=== PATIENT | female | born 1940 | race Caucasian/White ===

== ENCOUNTER 2017-01-18 03:22 | Inpatient (IN) | payer MEDICARE, BC ==
[2017-01-18] VITALS (9 sets, daily range): BP systolic 106–173; BP diastolic 52–79
[~2017-01-18] VITALS: Ht 162.6 cm; Wt 88.9 kg
[~2017-01-18 03:22] MED LIST: CARV25TA PO; DEXL60CA PO; DICY20TA3 PO; FURO40SO5 PO; SILD20TA2 PO; WARF5VIA IV; [UNRECOGNIZED DRUG - OTHER]
[2017-01-18 06:38] LABS: HEMATOCRIT 35.8 % (36.0-47.0); HEMOGLOBIN 11.4 g/dL (12.0-15.5); RED BLOOD COUNT 3.98 x10^6/uL (3.50-5.40); RED CELL DISTRIBUTION WIDTH 14.7 % (11.5-14.5); WHITE BLOOD COUNT 5.1 x10^3/uL (4.0-11.0)
[2017-01-18 06:47] LABS: ALBUMIN 3.5 g/dL (3.4-5.0); CALCIUM 8.8 mg/dL (8.5-10.1); CREATININE 0.9 mg/dL (0.6-1.0); GFR 60.4; MAGNESIUM 1.9 mg/dL (1.8-2.4); POTASSIUM 4.4 mmol/L (3.5-5.1); TOTAL BILIRUBIN 0.5 mg/dL (0.2-1.0); TOTAL PROTEIN 7.1 g/dL (6.4-8.2)
[2017-01-18] MEDS ORDERED: LEVO50TA5 PO (06:56)
[2017-01-18] MEDS ORDERED: MULT1TAB52 PO (06:56)
[2017-01-18] MEDS ORDERED: SPIR25TA3 PO (06:56)
[2017-01-18] MEDS ORDERED: WARF5TAB7 PO (06:56)
[2017-01-18] MEDS ORDERED: AMLO10TA2 PO (07:33)
[2017-01-18] MEDS ORDERED: TRAM50TA PO (07:34)
[2017-01-18] MEDS ORDERED: CALC-178 PO (07:35)
[2017-01-18] MEDS ORDERED: SILD20TA PO (07:36)
[2017-01-18] MEDS ORDERED: FURO-68 PO (07:39)
[2017-01-18] MEDS: CALCIUM CARB/VIT D3 500/200 TABLET PO SCH (08:13)
[2017-01-18] MEDS: SPIRONOLACTONE 25 MG TABLET PO SCH (08:13)
[2017-01-18] MEDS: MULTIVITAMIN with MINERAL TABLET. PO SCH (08:13)
[2017-01-18] MEDS: CARVEDILOL 12.5 MG TABLET PO SCH ×2 (08:13→18:43)
[2017-01-18] MEDS: LEVOTHYROXINE 50 MCG TABLET PO SCH (08:14)
[2017-01-18] MEDS: AMLODIPINE BESYLATE 10 MG TABLET PO SCH (08:14)
[2017-01-18] MEDS ORDERED: ONDANSETRON PF 4 MG/2 ML VIAL. ONE (08:32)
[2017-01-18] MEDS ORDERED: ONDANSETRON PF 4 MG/2 ML VIAL. IV PRN (08:45)
[2017-01-18] MEDS: FUROSEMIDE 40 MG TABLET PO SCH (08:47)
--- NOTE | 2017-01-18 08:51 | PDOC2 ---
CONSULT Date of Admission DATE: 01/18/17 TIME: 08:51 Reason for Consult: dizziness, atrial fibrillation, hypertension History of Present Illness Ms Talavera is a 77 year old female with a history of chronic, rate controlled, atrial fibrillation and pulmonary hypertension for which she [place] with [facility] [place]. She reports that yesterday she was sitting and had sudden onset of dizziness that she describes as a spinning sensation. She reports that this was increased with turning of her head or movement. She reports associated nausea and a flushed sensation in her face. She also reports some numbness and tingling in her right arm. She denies any chest discomfort, palpitations or dyspnea beyond her baseline. She denies any congestive symptoms or syncope. She reports being unable to walk due to the dizziness so EMS was called and she was taken to [facility]. She was told she had vertigo but felt unable to go home. [place] had no beds so she was direct admitted to [facility]. She reports improvement in the dizziness if she lays still and keeps her eyes closed, after medication given to her at [facility]. 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 She believes her last echo, and stress test were at least 1 year ago. Past Surgical History hip surgery, hysterectomy Family History HTN, CAD Social History non smoker, no significant ETOH, no illicit drugs Current Medications Current Medications Amlodipine Besylate (Norvasc) 10 mg DAILY PO Last administered on 01/18/17 08: 14; Start 01/18/17 at 09:00 Carvedilol (Coreg) 12.5 mg BIDWMEALS PO Last administered on 01/18/17 08:13; Start 01/18/17 at 08:00 Levothyroxine Sodium (Synthroid) 50 mcg DAILYAC PO Last administered on 08:14; Start 01/18/17 at 07:30 Spironolactone (Aldactone) 25 mg DAILY PO Last administered on 01/18/17 08:13 ; Start 01/18/17 at 09:00 Warfarin Sodium (Coumadin) 10 mg DAILY16 PO ; Start 01/18/17 at 16:00 Calcium/Vitamin D (Oscal D 500mg/ 200uts) 1 tab DAILYWBKFT PO Last administered on 01/18/17 08:13; Start 01/18/17 at 08:00 Multivitamins/ Calcium (Thera-M Plus) 1 tab DAILY PO Last administered on 08:13; Start 01/18/17 at 09:00 Warfarin Sodium (Coumadin Per Physician) 1 each PRN DAILY PRN [facility] SEE COMMENTS; Start 01/18/17 at 08:00 Furosemide (Lasix) 40 mg DAILY PO Last administered on 01/18/17 08:47; Start 01/18/17 at 09:00 Sildenafil Citrate (Revatio) 20 mg TID PO ; Start 01/18/17 at 09:00 Ondansetron HCl (Zofran) 4 mg STK-MED ONCE .ROUTE ; Start 01/18/17 at 08:32; Stop 01/18/17 at 08:33; Status DC Ondansetron HCl (Zofran) 4 mg PRN Q6HRS PRN IV NAUSEA/VOMITING; Start 01/18/17 at 08:45 Active Scripts Active Reported Lasix (Furosemide) 40 Mg Tablet 1 Tab PO DAILY Calcium 1,000 + D3 Caplet (Calcium Carbonate/Vitamin D3) 1 Each Tablet 1 Each PO DAILY Tramadol Hcl (Tramadol HCl) 50 Mg Tablet 50 Mg PO PRN Q6HRS PRN Amlodipine Besylate 10 Mg Tablet 1 Tab PO DAILY Multivitamins (Multivitamin) 1 Each Tablet 1 Each PO DAILY Levothyroxine Sodium 50 Mcg Tablet 50 Mcg PO DAILYAC LAST DOSE GIVEN: DATE: TIME: NEXT DOSE DUE: DATE: TIME: Warfarin Sodium 5 Mg Tablet 10 Mg PO DAILY LAST DOSE GIVEN: DATE: TIME: NEXT DOSE DUE: DATE: TIME: Spironolactone 25 Mg Tablet 25 Mg PO DAILY LAST DOSE GIVEN: DATE: TIME: NEXT DOSE DUE: DATE: TIME: Sildenafil (Sildenafil Citrate) 20 Mg Tablet 20 Mg PO TID LAST DOSE GIVEN: DATE: TIME: NEXT DOSE DUE: DATE: TIME: Dicyclomine Hcl 20 Mg Tablet 20 Mg PO DAILY PRN LAST DOSE GIVEN: DATE: TIME: NEXT DOSE DUE: DATE: TIME: Dexilant (Dexlansoprazole) 60 Mg Ramsey.mp 60 Mg PO DAILY PRN LAST DOSE GIVEN: DATE: TIME: NEXT DOSE DUE: DATE: TIME: Coreg (Carvedilol) 25 Mg Tablet 40 Mg PO LAST DOSE GIVEN: DATE: TIME: NEXT DOSE DUE: DATE: TIME: Allergies: Coded Allergies: nitrofurantoin (Verified Allergy, Intermediate, 02/21/14) Penicillins (Verified Allergy, Mild, 01/18/17) Has tolerated for up to a week before Sulfa (Sulfonamide Antibiotics) (Verified Allergy, Mild, 01/18/17) Has tolerated for up to a week before Review of System as per HPI or negative General: Alert, Oriented X3, Cooperative, mild distress HEENT: Atraumatic, Mucous membr. moist/pink Lungs: Clear to auscultation Heart: Other (irregular rate and rhythm without gallops, clicks or rubs) Abdomen: Normal bowel sounds, Soft Extremities: No clubbing, No cyanosis, Normal pulses Neuro: Normal speech, Strength at 5/5 X4 ext Psych/Mental Status: Mental status NL, Mood NL VITALS Vital Signs Date Time Temp Pulse Resp B/P Pulse Ox O2 Delivery O2 Flow Rate FiO2 01/18/17 08:14 62 01/18/17 07:27 97.6 20 173/77 96 Room Air Labs Laboratory Tests Test 01/18/17 05:50 White Blood Count 5.1x10^3/uL (4.0-11.0) Red Blood Count 3.98x10^6/uL (3.50-5.40) Hemoglobin 11.4g/dL (12.0-15.5) Hematocrit 35.8% (36.0-47.0) Mean Corpuscular Volume 90fL (79-100) Mean Corpuscular Hemoglobin 29pg (25-35) Mean Corpuscular Hemoglobin Concent 32g/dL (31-37) Red Cell Distribution Width 14.7% (11.5-14.5) Platelet Count 229x10^3/uL (140-400) Prothrombin Time 11.2SEC (9.4-11.4) Prothromb Time International Ratio 1.1 (0.9-1.1) Sodium Level 134mmol/L (136-145) Potassium Level 4.4mmol/L (3.5-5.1) Chloride Level 98mmol/L (98-107) Carbon Dioxide Level 28mmol/L (21-32) Anion Gap 8 (6-14) Blood Urea Nitrogen 14mg/dL (7-20) Creatinine 0.9mg/dL (0.6-1.0) Estimated GFR (Cockcroft-Gault) 60.4 BUN/Creatinine Ratio 16 (6-20) Glucose Level 135mg/dL (70-99) Calcium Level 8.8mg/dL (8.5-10.1) Magnesium Level 1.9mg/dL (1.8-2.4) Total Bilirubin 0.5mg/dL (0.2-1.0) Aspartate Amino Transf (AST/SGOT) 11U/L (15-37) Alanine Aminotransferase (ALT/SGPT) 12U/L (14-59) Alkaline Phosphatase 85U/L (46-116) Total Protein 7.1g/dL (6.4-8.2) Albumin 3.5g/dL (3.4-5.0) Albumin/Globulin Ratio 1.0 (1.0-1.7) Images CT IMPRESSION: Right cerebellar lucency raising the possibility of a recent infarct. An infectious or neoplastic process cannot be excluded. MR scanning is suggested for further evaluation. Assessment/Plan 1. Dizziness - vertigo vs cerebellar infarct. Suggest carotids and CT results as above, suggest neuro consult and MR as suggested. 2. chronic atrial fibrillation - rate controlled. On warfarin for stroke prophylaxis, sub therapeutic. 3. hypertension- resume home medications 4. pulmonary hypertension - follows [facility] clinic. No further cardiac recs at this time. mgmt per Neuro. Problems: OBDULIO MAYFIELD APRN Jan 18, 2017 08:51
[2017-01-18] MEDS: SILDENAFIL CITRATE 20 MG TABLET. PO SCH ×3 (09:52→20:40)
[2017-01-18] MEDS: MECLIZINE 12.5 MG TABLET. PO PRN (09:53)
--- NOTE | 2017-01-18 10:26 | RAD ---
CT of the head without contrast, 01/18/2017: History: Severe dizziness The ventricles are within normal limits in size. There is no shift of the third ventricle. There is mild cerebral atrophy, most prominent in the frontal regions. There is a lucency in the right cerebellar hemisphere inferomedially and posteriorly. There is slight effacement of the inferior aspect of the fourth ventricle on the right. This lucency is somewhat geographic in nature raising the possibility of a recent infarct. No acute hemorrhage is seen. No abnormal extra-axial fluid collection or mass is evident. IMPRESSION: Right cerebellar lucency raising the possibility of a recent infarct. An infectious or neoplastic process cannot be excluded. MR scanning is suggested for further evaluation. CT of the paranasal sinuses without contrast, 01/18/2017: Noncontrast scans were obtained with multiplanar reconstructions produced. The paranasal sinuses are clear. The ostiomeatal complexes are patent. No bony abnormality is detected. The orbital contents are unremarkable. IMPRESSION: No significant paranasal sinus abnormality is detected. PQRS Compliance Statement: One or more of the following individualized dose reduction techniques were utilized for this examination: 1. Automated exposure control 2. Adjustment of the mA and/or kV according to patient size 3. Use of iterative reconstruction technique
[2017-01-18] MEDS: DIAZEPAM 10 MG/2 ML DISP.SYRIN. IV PRN (10:50)
[2017-01-18 12:30] LABS: BILIRUBIN,URINE NEG (NEG); CLARITY,URINE CLOUDY; COLOR,URINE YELLOW; GLUCOSE,URINE NEG (NEG)
[2017-01-18 12:35] LABS: BACTERIA,URINE MANY /HPF (0-FEW); NITRITE,URINE NEG (NEG); UROBILINOGEN,URINE 0.2 mg/dL (0.2 mg/dL)
[2017-01-18 12:36] LABS: HYALINE CASTS, URINE FEW /HPF; SQUAMOUS EPITHELIAL CELL,UR FEW /LPF
--- NOTE | 2017-01-18 14:31 | CONS ---
DATE OF CONSULTATION: 01/18/2017 REASON FOR CONSULTATION: Rule out stroke. HISTORY OF PRESENT ILLNESS: This is a 77-year-old right-handed white female, who was transferred from [facility] for further care. The patient presented with chief complaints of severe dizziness and unsteady gait. They said the symptoms had started last night at 9 p.m. The patient denies headaches, nausea, vomiting, chest pain, or shortness of breast. She has had longstanding history of atrial fibrillations and hypertension. She denies any recent fall or head injuries. Initial head CT scan revealed evidence of acute/subacute right cerebellar infarct. PAST MEDICAL HISTORY: Significant for chronic atrial fibrillations, pulmonary hypertension, spastic colon, status post left hip replacement followed by rehabilitation approximately a week ago, arthritis, anemia, status post total right hip replacement, and hypothyroidism. SOCIAL HISTORY: The patient is . She denies smoking, alcohol drinking, or illicit drug use. FAMILY HISTORY: Mother had cardiovascular disease. CURRENT MEDICATIONS: Warfarin 10 mg daily, diazepam 5 mg q. 6 hours p.r.n. IV, meclizine 12.5 mg q.6 hours p.r.n. p.o., Revatio 20 mg 1 tablet t.i.d., Lasix 40 mg daily, multivitamins and calcium, spironolactone 25 mg p.o. daily, amlodipine 10 mg p.o. daily, Zofran 4 mg IV q. 6 hours. p.r.n. for nausea, and vomiting, vitamin D and calcium 2000 daily, carvedilol 12.5 mg p.o. b.i.d. and levothyroxine 50 mcg p.o. daily. ALLERGIES: PENICILLIN, SULFA DRUGS, and NITROFURANTOIN. PHYSICAL EXAMINATION: GENERAL: Well-developed, well-nourished white female, not in acute distress. She weighs 191.4 pounds. VITAL SIGNS: Blood pressure 173/77, respiratory rate 20, pulse is 90, irregular; and oxygen saturation 96% on room air. HEENT: Normocephalic, atraumatic; otherwise, unremarkable. NECK: Supple. Negative for carotid bruit, lymphadenopathy, JVD or thyromegaly. LUNGS: Clear to A and P. CARDIOVASCULAR: Irregular rhythm, normal S1, S2. There is no S3, S4. ABDOMEN: Soft. Bowel sounds are positive. EXTREMITIES: Negative for cyanosis, clubbing, or pitting edema, but positive for recent left total knee replacement. NEUROLOGIC: 1. MENTAL STATUS: The patient is alert and oriented x 3. Speech is fluent. There is no language dysfunction. Memory, judgment, and abstract thinking are normal. The patient denies hallucination or delusion. 2. CRANIAL NERVES: Visual louis are full. The pupils are reactive to light and accommodation. The extraocular movements are intact. There is no nystagmus. There is no facial motor or sensory deficit. Hearing is intact bilaterally. The palate is elevated symmetrically. Sternocleidomastoid muscles are powerful bilaterally. The patient shrugs her shoulders symmetrically and protrudes her tongue in the midline without fasciculation or atrophy. 3. MOTOR: No focal muscle bulk was seen. The tone is normal. The strength is 4/5 throughout. Sensory examination revealed normal pinprick, light touch, vibratory and position senses. Deep tendon reflexes are symmetric and hypoactive without pathology responses. Gait: The stance is unsteady. The patient veers to the right side. The patient cannot walk. LABORATORY DATA: CBC revealed white blood cells of 5.1 thousand, hemoglobin 11.4, hematocrit 35.8, and platelet count 229,000. Chemistry revealed sodium of 134, potassium 4.4, chloride 98, CO2 of 28, BUN 14, creatinine 0.9, glucose 135, calcium 8.8. Liver enzymes are low. Coagulation: PT is 11.2 and INR is low at 1.1. DIAGNOSTIC: Nonenhanced head CT scan consistent with acute/subacute right cerebellar infarct. IMPRESSION: 1. Acute stroke, presented with severe vertigo described as a spinning, likely due to right cerebellar infarct. 2. Multiple medical problems include chronic atrial fibrillations, hypertension, hypothyroidism, arthritis, pulmonary hypertension, and vitamin D deficiency. RECOMMENDATIONS: 1. Brain MRI and MRA. 2. Adjust warfarin to keep INR between 2 and . 3. Extensive rehabilitation for stroke. 4. We would check on a carotid Doppler study and echocardiogram; however, this stroke is consistent with a posterior circulation. M Eric MEZA MD DR: LILLIE/anitha JOB#: [id number] / [id number]
[2017-01-18] MEDS: WARFARIN 10 MG TABLET. PO SCH (18:43)
[2017-01-18] MEDS: ENOXAPARIN ** NOTE DOSE ** SYRINGE SQ SCH (20:41)
[2017-01-19] VITALS (16 sets, daily range): BP systolic 93–144; BP diastolic 40–78
[2017-01-19] MEDS: MECLIZINE 12.5 MG TABLET. PO PRN ×2 (02:53→07:53)
[2017-01-19] MEDS: ACETAMINOPHEN 325 MG TABLET PO PRN ×3 (03:44→23:50)
[2017-01-19 06:32] LABS: BASO % 0 % (0-3); EOS # 0.3 x10^3/uL (0.0-0.7); EOS % 4 % (0-3); HEMATOCRIT 34.5 % (36.0-47.0); HEMOGLOBIN 11.2 g/dL (12.0-15.5); LYMPH # 0.9 x10^3/uL (1.0-4.8); LYMPH % 13 % (24-48); MEAN CORPUSCULAR HEMOGLOBIN 29 pg (25-35); MEAN CORPUSCULAR HGB CONC 32 g/dL (31-37); MEAN CORPUSCULAR VOLUME 88 fL (79-100); MONO # 0.6 x10^3/uL (0.0-1.1); MONO % 9 % (0-9); NEUT % 74 % (31-73); PLATELET COUNT 238 x10^3/uL (140-400); RED BLOOD COUNT 3.92 x10^6/uL (3.50-5.40); RED CELL DISTRIBUTION WIDTH 14.7 % (11.5-14.5); WHITE BLOOD COUNT 6.7 x10^3/uL (4.0-11.0)
[2017-01-19 06:39] LABS: ALBUMIN 3.2 g/dL (3.4-5.0); GFR 53.5; POTASSIUM 3.8 mmol/L (3.5-5.1); TOTAL BILIRUBIN 0.7 mg/dL (0.2-1.0); TOTAL PROTEIN 6.5 g/dL (6.4-8.2)
[2017-01-19] MEDS: CALCIUM CARB/VIT D3 500/200 TABLET PO SCH (07:52)
[2017-01-19] MEDS: LEVOTHYROXINE 50 MCG TABLET PO SCH (07:52)
[2017-01-19] MEDS: FUROSEMIDE 40 MG TABLET PO SCH (07:52)
[2017-01-19] MEDS: ENOXAPARIN ** NOTE DOSE ** SYRINGE SQ SCH ×2 (07:52→20:51)
[2017-01-19] MEDS: MULTIVITAMIN with MINERAL TABLET. PO SCH (07:52)
[2017-01-19] MEDS: SILDENAFIL CITRATE 20 MG TABLET. PO SCH ×3 (07:52→20:50)
[2017-01-19] MEDS: AMLODIPINE BESYLATE 10 MG TABLET PO SCH (07:53)
[2017-01-19] MEDS: SPIRONOLACTONE 25 MG TABLET PO SCH (07:53)
[2017-01-19] MEDS: CARVEDILOL 12.5 MG TABLET PO SCH ×2 (07:53→16:59)
--- NOTE | 2017-01-19 08:37 | PDOC ---
PROGRESS NOTES Assessment 1. cerebellar infarct. - neuro following. 2. chronic atrial fibrillation - rate controlled. On warfarin for stroke prophylaxis, sub therapeutic. Dosing per pharmacy. PT for fall risk assessment. ? candidate for watchman device. 3. hypertension - controlled on home meds. 4. pulmonary hypertension - follows [facility] clinic. On sildenafil . Stable from cardiac perspective. OP follow up with [facility]. Call if any questions or concerns. Problems: Subjective remains dizzy, little bit better however. Still feels unsteady. Occasional double vision. no chest pain, palpitations or dyspnea. 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 The right PICAs a is not identified. This corresponds to the area of infarct in the right cerebellar hemisphere. MRI brain IMPRESSION 1. There is a large acute/early subacute right cerebellar infarct. Other mild T2 and FLAIR hyperintense signal abnormality of the supratentorial white matter is probably due to chronic microvascular ischemic disease. 2. There is patchy fluid and thickening of the right mastoid air cells. Vital Signs Date Time Temp Pulse Resp B/P Pulse Ox O2 Delivery O2 Flow Rate FiO2 01/19/17 08:00 Nasal Cannula 2.0 01/19/17 07:53 80 01/19/17 06:00 98.7 18 138/69 97 Intake and Output 01/19/17 07:00 Intake Total 820 ml Output Total 1100 ml Balance -280 ml Intake Oral 820 ml Output Urine Total 1100 ml Abdomen: Normal bowel sounds, Soft, No tenderness Heart: Other (IRR without gallops, clicks or rubs.) Extremities: No cyanosis, Normal pulses General: Alert, Oriented X3, Cooperative, No acute distress Lungs: Other (decreased bases o/w clear) Neuro: Normal speech, Strength at 5/5 X4 ext Psych/Mental Status: Mental status NL, Mood NL Review of Relevant I have reviewed the following items shiar (where applicable) has been applied. Labs Laboratory Tests Test 01/18/17 04:00 01/18/17 05:50 01/18/17 12:15 01/19/17 05:55 Nasal Screen MRSA (PCR) Negative (Negative) White Blood Count 5.1x10^3/uL (4.0-11.0) 6.7x10^3/uL (4.0-11.0) Red Blood Count 3.98x10^6/uL (3.50-5.40) 3.92x10^6/uL (3.50-5.40) Hemoglobin 11.4g/dL (12.0-15.5) 11.2g/dL (12.0-15.5) Hematocrit 35.8% (36.0-47.0) 34.5% (36.0-47.0) Mean Corpuscular Volume 90fL (79-100) 88fL (79-100) Mean Corpuscular Hemoglobin 29pg (25-35) 29pg (25-35) Mean Corpuscular Hemoglobin Concent 32g/dL (31-37) 32g/dL (31-37) Red Cell Distribution Width 14.7% (11.5-14.5) 14.7% (11.5-14.5) Platelet Count 229x10^3/uL (140-400) 238x10^3/uL (140-400) Prothrombin Time 11.2SEC (9.4-11.4) 11.7SEC (9.4-11.4) Prothromb Time International Ratio 1.1 (0.9-1.1) 1.1 (0.9-1.1) Sodium Level 134mmol/L (136-145) 129mmol/L (136-145) Potassium Level 4.4mmol/L (3.5-5.1) 3.8mmol/L (3.5-5.1) Chloride Level 98mmol/L (98-107) 93mmol/L (98-107) Carbon Dioxide Level 28mmol/L (21-32) 31mmol/L (21-32) Anion Gap 8 (6-14) 5 (6-14) Blood Urea Nitrogen 14mg/dL (7-20) 13mg/dL (7-20) Creatinine 0.9mg/dL (0.6-1.0) 1.0mg/dL (0.6-1.0) Estimated GFR (Cockcroft-Gault) 60.4 53.5 BUN/Creatinine Ratio 16 (6-20) 13 (6-20) Glucose Level 135mg/dL (70-99) 100mg/dL (70-99) Calcium Level 8.8mg/dL (8.5-10.1) 9.0mg/dL (8.5-10.1) Magnesium Level 1.9mg/dL (1.8-2.4) Total Bilirubin 0.5mg/dL (0.2-1.0) 0.7mg/dL (0.2-1.0) Aspartate Amino Transf (AST/SGOT) 11U/L (15-37) 10U/L (15-37) Alanine Aminotransferase (ALT/SGPT) 12U/L (14-59) 9U/L (14-59) Alkaline Phosphatase 85U/L (46-116) 78U/L (46-116) Total Protein 7.1g/dL (6.4-8.2) 6.5g/dL (6.4-8.2) Albumin 3.5g/dL (3.4-5.0) 3.2g/dL (3.4-5.0) Albumin/Globulin Ratio 1.0 (1.0-1.7) 1.0 (1.0-1.7) Urine Collection Type Unknown Urine Color Yellow Urine Clarity Cloudy Urine pH 7.0 Urine Specific [place] 1.015 Urine Protein Neg (NEG-TRACE) Urine Glucose (UA) Negmg/dL (NEG) Urine Ketones (Stick) Negmg/dL (NEG) Urine Blood Small (NEG) Urine Nitrite Neg (NEG) Urine Bilirubin Neg (NEG) Urine Urobilinogen Dipstick 0.2mg/dL (0.2 mg/dL) Urine Leukocyte Esterase Neg (NEG) Urine RBC 1-2/HPF (0-2) Urine WBC 1-4/HPF (0-4) Urine Squamous Epithelial Cells Few/LPF Urine Bacteria Many/HPF (0-FEW) Urine Hyaline Casts Few/HPF Neutrophils (%) (Auto) 74% (31-73) Lymphocytes (%) (Auto) 13% (24-48) Monocytes (%) (Auto) 9% (0-9) Eosinophils (%) (Auto) 4% (0-3) Basophils (%) (Auto) 0% (0-3) Neutrophils # (Auto) 5.0x10^3uL (1.8-7.7) Lymphocytes # (Auto) 0.9x10^3/uL (1.0-4.8) Monocytes # (Auto) 0.6x10^3/uL (0.0-1.1) Eosinophils # (Auto) 0.3x10^3/uL (0.0-0.7) Basophils # (Auto) 0.0x10^3/uL (0.0-0.2) Medications Current Medications Amlodipine Besylate (Norvasc) 10 mg DAILY PO Last administered on 01/19/17 07: 53; Start 01/18/17 at 09:00 Carvedilol (Coreg) 12.5 mg BIDWMEALS PO Last administered on 01/19/17 07:53; Start 01/18/17 at 08:00 Levothyroxine Sodium (Synthroid) 50 mcg DAILYAC PO Last administered on 07:52; Start 01/18/17 at 07:30 Spironolactone (Aldactone) 25 mg DAILY PO Last administered on 01/19/17 07:53 ; Start 01/18/17 at 09:00 Warfarin Sodium (Coumadin) 10 mg DAILY16 PO Last administered on 01/18/17 18: 43; Start 01/18/17 at 16:00 Calcium/Vitamin D (Oscal D 500mg/ 200uts) 1 tab DAILYWBKFT PO Last administered on 01/19/17 07:52; Start 01/18/17 at 08:00 Multivitamins/ Calcium (Thera-M Plus) 1 tab DAILY PO Last administered on 07:52; Start 01/18/17 at 09:00 Warfarin Sodium (Coumadin Per Physician) 1 each PRN DAILY PRN [facility] SEE COMMENTS; Start 01/18/17 at 08:00 Furosemide (Lasix) 40 mg DAILY PO Last administered on 01/19/17 07:52; Start 01/18/17 at 09:00 Sildenafil Citrate (Revatio) 20 mg TID PO Last administered on 01/19/17 07:52 ; Start 01/18/17 at 09:00 Ondansetron HCl (Zofran) 4 mg STK-MED ONCE .ROUTE ; Start 01/18/17 at 08:32; Stop 01/18/17 at 08:33; Status DC Ondansetron HCl (Zofran) 4 mg PRN Q6HRS PRN IV NAUSEA/VOMITING; Start 01/18/17 at 08:45 Meclizine HCl (Antivert) 12.5 mg PRN Q6HRS PRN PO DIZZINESS Last administered on 01/19/17 07:53; Start 01/18/17 at 09:15 Diazepam (Valium) 5 mg PRN Q6HRS PRN IV DIZZINESS Last administered on 10:50; Start 01/18/17 at 09:15 Enoxaparin Sodium (Lovenox 100mg Syringe) 86 mg Q12HR SQ Last administered on 07:52; Start 01/18/17 at 21:00 Acetaminophen (Tylenol) 650 mg PRN Q6HRS PRN PO MILD PAIN / TEMP Last administered on 01/19/17 03:44; Start 01/19/17 at 03:30 Active Scripts Active Reported Lasix (Furosemide) 40 Mg Tablet 1 Tab PO DAILY Calcium 1,000 + D3 Caplet (Calcium Carbonate/Vitamin D3) 1 Each Tablet 1 Each PO DAILY Tramadol Hcl (Tramadol HCl) 50 Mg Tablet 50 Mg PO PRN Q6HRS PRN Amlodipine Besylate 10 Mg Tablet 1 Tab PO DAILY Multivitamins (Multivitamin) 1 Each Tablet 1 Each PO DAILY Levothyroxine Sodium 50 Mcg Tablet 50 Mcg PO DAILYAC LAST DOSE GIVEN: DATE: TIME: NEXT DOSE DUE: DATE: TIME: Warfarin Sodium 5 Mg Tablet 10 Mg PO DAILY LAST DOSE GIVEN: DATE: TIME: NEXT DOSE DUE: DATE: TIME: Spironolactone 25 Mg Tablet 25 Mg PO DAILY LAST DOSE GIVEN: DATE: TIME: NEXT DOSE DUE: DATE: TIME: Sildenafil (Sildenafil Citrate) 20 Mg Tablet 20 Mg PO TID LAST DOSE GIVEN: DATE: TIME: NEXT DOSE DUE: DATE: TIME: Dicyclomine Hcl 20 Mg Tablet 20 Mg PO DAILY PRN LAST DOSE GIVEN: DATE: TIME: NEXT DOSE DUE: DATE: TIME: Dexilant (Dexlansoprazole) 60 Mg 60 Mg PO DAILY PRN LAST DOSE GIVEN: DATE: TIME: NEXT DOSE DUE: DATE: TIME: Coreg (Carvedilol) 25 Mg Tablet 40 Mg PO LAST DOSE GIVEN: DATE: TIME: NEXT DOSE DUE: DATE: TIME: Vitals/I & O Vital Sign - Last 24 Hours 01/18/17 01/18/17 01/18/17 01/18/17 09:52 11:01 12:18 14:00 Temp 97.8 Pulse 90 63 85 Resp 20 B/P 151/79 160/63 Pulse Ox 98 O2 Delivery Room Air 01/18/17 01/18/17 01/18/17 01/18/17 18:25 18:43 20:00 20:33 Temp 97.6 Pulse 69 84 56 Resp 20 16 B/P 131/60 106/52 Pulse Ox 96 98 O2 Delivery Nasal Cannula Nasal Cannula Nasal Cannula O2 Flow Rate 2.0 2.0 2.0 01/18/17 01/18/17 01/18/17 01/18/17 20:40 21:23 23:29 23:51 Pulse 63 68 Resp 22 B/P 106/52 146/62 131/64 Pulse Ox 99 O2 Delivery Nasal Cannula Nasal Cannula O2 Flow Rate 2.0 2.0 01/19/17 01/19/17 01/19/17 01/19/17 01:29 03:29 06:00 07:52 Temp 98.7 Pulse 68 64 68 80 Resp 18 17 18 B/P 122/61 129/59 138/69 Pulse Ox 95 95 97 O2 Delivery Nasal Cannula Nasal Cannula Nasal Cannula O2 Flow Rate 2.0 2.0 2.0 01/19/17 01/19/17 01/19/17 07:53 07:53 08:00 Pulse 85 80 O2 Delivery Nasal Cannula O2 Flow Rate 2.0 Intake and Output 01/18/17 01/18/17 01/19/17 15:00 23:00 07:00 Intake Total 60 ml 360 ml 400 ml Output Total 600 ml 500 ml Balance -540 ml 360 ml -100 ml OBDULIO MAYFIELD APRN Jan 19, 2017 08:37
--- NOTE | 2017-01-19 13:26 | PN ---
DATE: 01/18/2017 SUBJECTIVE: The patient continues to have severe vertigo and balance disturbances. She is unable to stand or walk without assistance. She denies nausea and vomiting, but she complains of global headaches. Last headache was last night, which was relieved by two tablets of Tylenol. OBJECTIVE: GENERAL: A well-developed and well-nourished white female, not in acute distress. VITAL SIGNS: Blood pressure is 130/69, respiratory rate 18, pulse is 80, and oxygen saturation 97% on 2 liters by nasal cannula. HEENT: Normocephalic and atraumatic; otherwise, unremarkable. NECK: Supple. Negative for carotid bruit, lymphadenopathy, or thyromegaly. LUNGS: Clear to A and P. CARDIOVASCULAR: Regular rhythm. Normal S1 and S2. There is no S3, S4, or murmur. ABDOMEN: Soft. Bowel sounds positive. EXTREMITIES: Negative for cyanosis, clubbing, or pitting edema. NEUROLOGICAL EXAM: MENTAL STATUS: The patient is alert and oriented x3. Speech is fluent. There is no language dysfunction. Cranial nerves are intact. No nystagmus. Motor examination revealed no focal muscle bulk was seen. The tone is normal. The strength is 4/5 in the right upper and lower extremities compared to those on the left side. The patient has abnormal [id number] secondary to a stroke. Deep tendon reflexes are symmetric and hypoactive without pathologic responses. Gait, the stance is unsteady. The patient cannot walk. DIAGNOSTIC DATA: Brain MRI revealed large acute/subacute right cerebellar infarct and MRA was consistent with severe stenosis of the right vertebral artery at the V3-V4 ejection. The right PICA was indentified. IMPRESSION: 1. Status post acute right cerebellar infarct resulted in vertigo and gait disturbances. Abnormal MRI and MRA as described above. 2. Multiple medical problems include atrial fibrillations, hypertension, hypothyroidism, arthritis, pulmonary hypertension, and vitamin D deficiency. RECOMMENDATIONS: 1. Continue with current management initiated by Dr. Massey. 2. Continue with extensive rehabilitation for stroke and physical therapy. 3. To keep INR between 2.5 to 3. The patient is not a candidate for new intervention due to a type of stroke and the ____. M Eric MEZA MD DR: LILLIE/anitha JOB#: [id number] / [id number]
[2017-01-19] MEDS: WARFARIN 10 MG TABLET. PO SCH (15:20)
--- NOTE | 2017-01-19 15:45 | HP ---
ADMIT DATE: 01/18/2017 No dictation. ROSALINO DISLA MD DR: Pierre JOB#: [id number] / [id number]
[2017-01-19] MEDS ORDERED: WARFARIN 5 MG TABLET. PO ONE (16:00)
--- NOTE | 2017-01-19 16:00 | HP ---
ADMIT DATE: 01/18/2017 HISTORY OF PRESENT ILLNESS: This is a 77-year-old female patient, who was transferred from [facility] for further care. The patient presented with chief complaint of severe dizziness and unsteady gait. They said that symptom had started the night before at 9 p.m. The patient denies headaches, nausea, vomiting, chest pain or shortness of breath. She has had longstanding history of atrial fibrillation, hypertension. She denies any recent fall or head injury. Initially a CT scan revealed evidence of acute/subacute right cerebellar infarct. PAST MEDICAL HISTORY: Significant for chronic atrial fibrillation, pulmonary hypertension, spastic colon, status post hip replacement followed by rehabilitation approximately a week ago; generalized osteoarthritis, anemia, status post total right hip replacement, and hypothyroidism. PAST SURGICAL HISTORY: Significant for left knee replacement and left hip replacement. FAMILY HISTORY: Mother has cardiovascular disease. SOCIAL HISTORY: The patient is . She does not smoke, drink alcohol or use any recreational drugs. REVIEW OF SYSTEMS: As per history of present illness. MEDICATIONS: She is currently on the following medications: Amlodipine besylate 10 mg once a day, calcium carbonate with vitamin D3 1000 one tablet once a day, carvedilol 40 mg once a day, Dexilant 60 mg once a day, dicyclomine 20 mg daily, furosemide 40 mg once a day, levothyroxine sodium 50 mcg daily, multivitamin 1 tablet once a day, sildenafil 20 mg 3 times a day, spironolactone 25 mg once a day, tramadol 50 mg once a day; warfarin, she takes 10 mg once a day. PHYSICAL EXAMINATION: GENERAL: On arrival to the Emergency Room, the patient was complaining of severe dizziness; however, she was also pale, but no jaundice, cyanosis, or thyromegaly. No jugular venous distention. No limb edema. VITAL SIGNS: Her heart rate was 58, blood pressure 166/72, temperature was 97.8, respiratory rate was 17 and oxygen saturation was 94% on room air. HEAD, EYES, EARS, NOSE, AND THROAT: Showed normocephalic, atraumatic. NECK: Supple. HEART: Showed normal first and second heart sounds with no gallop, rub or murmur. CHEST: Clear to auscultation. No crepitation or rhonchi. ABDOMEN: Distended, soft, nontender. No guarding or rigidity. No organomegaly. All hernial orifices are intact. Bowel sounds are normal. NEUROLOGIC: She was awake, alert, responding appropriately. Cranial nerves are intact. She continues to feel dizzy, has blurring of vision. She has tendency to veer towards the right side. LABORATORY DATA: While in the Emergency Room, she has had lab work done, which showed that her white cell count was 5100, hemoglobin 11.4, hematocrit 36, MCV 90 and platelet count 229,000. Her prothrombin time was 11.2, INR of 1.1. Her chemistry showed a serum sodium 134, potassium 4.4, chloride 98, bicarbonate 28, anion gap of 8, BUN 14, creatinine 0.9, estimated GFR was 60 mL per minute. Her glucose was 135, calcium was 8.8, magnesium was 1.9. Total bilirubin, AST, ALT, and alkaline phosphatase were normal. Her total protein was 7.1, albumin was 3.5. Her urinalysis was essentially unremarkable. Nasal screen for MRSA PCR was negative. IMAGING STUDIES: She had a CT scan of the head and facial bones, which showed that she has right cerebellar lucency raising the possibility of a recent infarct and infectious or neoplastic process cannot be excluded. MRA scanning is suggestive for further evaluation. CT scan of paranasal sinus without contrast showed, noncontrast scan was obtained with multiplanar construction produced and revealed the paranasal sinuses are clear. The ostiomeatal complexes are patent, no bony abnormalities detected, the orbital contents . ASSESSMENT AND PLAN: The patient was admitted to the ICU and we did consult Dr. Talbert, who recommended to arrange for an echocardiogram as well as brain MRI and MRA and adjust Coumadin to maintain INR between 2 to 2.5 and also recommended doing an echocardiogram and bilateral carotid Doppler, although the stroke is mostly consistent with posterior circulation. ROSALINO DISLA MD DR: JIM/anitha JOB#: [id number] / [id number]
--- NOTE | 2017-01-19 16:36 | RAD ---
Exam performed: Carotid Doppler. History: Unsteady gait, right-sided weakness, dizziness. Technique: Grayscale, color Doppler 2-D, spectral waveform evaluation of the carotid system was performed and images are all obtained. Findings: There is minimal atherosclerotic plaque identified in the bilateral carotid bulbs. Doppler interrogation reveals normal waveforms and velocities as follows . Peak systolic velocity within the right common carotid artery ranges from 53-55 cm/sec whereas on the left ranges from 52-59 cm/sec . The peak systolic velocity within the right ICA ranges from 46-54 cm/sec whereas on the left ranges from 51-71 cm/sec. The ICA to CCA ratio on the right ranges from 0.84-0.98whereas on the left ranges from 0.86-1.22. There is antegrade flow in both vertebral arteries. There is some resistive waveform identified in the right vertebral artery could be due to distal stenosis. Impression: 1.Mild atherosclerotic plaquing involving both carotid systems without any flow-limiting stenosis. 2. Resistive waveforms identified in the right vertebral artery. Note: Stenosis calculations for CT, MR and conventional angiography are based upon determination of the distal ICA diameter in accordance with the NASCET methodology. Stenosis calculations for doppler studies are derived from validated velocity criteria which are known to correlate with NASCET methodology of determining stenosis.
[2017-01-19] MEDS ORDERED: BISACODYL TAB 5 MG TABLET.DR. PO ONE (18:00)
--- NOTE | 2017-01-19 18:06 | CARD ---
APPROVED REPORT EXAM: Two-dimensional and M-mode echocardiogram with Doppler and color Doppler. Other Information Quality : AverageHR: 73bpm Rhythm : Atrial Fibrillation INDICATION CVA/TIA Atrial Fibrillation 2D DIMENSIONS Left Atrium(2D)5.3 (1.6-4.0cm)IVSd0.8 (0.7-1.1cm) Aortic Root(2D)3.2 (2.0-3.7cm)LVDd5.1 (3.9-5.9cm) PWd0.8 (0.7-1.1cm)LA Krfrzw546 (18-58mL) LVDs3.6 (2.5-4.0cm)FS (%) 29.9 % SV70.8 mlLVEF(%)56.8 (>50%) CO4.7 L/min M-Mode DIMENSIONS Aortic Cusp Exc1.43 (1.5-2.0cm) Aortic Valve AoV Peak Dickson.257.4cm/sAoV VTI55.5cm AO Peak GR.26.5mmHgAO Mean GR.15mmHg RANDI (VTI)1.19ec0ND P 1/2 Vvyo530ia Mitral Valve MV E Cwjimmkn222.6cm/sMV E Peak Gr.5mmHg MV DECEL OKFR196ixMD IRG57oz MVA (PHT)6.11cm2 Tricuspid Valve TR P. Ezmsrymm893mz/sRAP DXQLYQDE3caPm TR Peak Gr.35lpZeVJAW36nlYb LEFT VENTRICLE The left ventricle is normal size. There is normal left ventricular wall thickness. The left ventricu lar systolic function is normal and the ejection fraction is within normal range. EF 55% There is nor mal LV segmental wall motion. RIGHT VENTRICLE The right ventricle is normal size. There is normal right ventricular wall thickness. The right ventr icular systolic function is mildly reduced. ATRIA The left atrium is severely dilated. The right atrium size is normal. The interatrial septum is intac t with no evidence for an atrial septal defect or patent foramen ovale as noted on 2-D or Doppler damion ging. AORTIC VALVE The aortic valve is moderately calcified. Doppler and Color Flow revealed mild regurgitation. Suspect mild to moderate calcific aortic stenosis. RANDI 1.4cm2. There is no aortic valvular vegetation. MITRAL VALVE The mitral valve is normal in structure and function. There is no evidence of mitral valve prolapse. There is no mitral valve stenosis. Doppler and Color-flow revealed mild mitral regurgitation. TRICUSPID VALVE The tricuspid valve is normal in structure and function. Doppler and Color Flow revealed moderate to severe tricuspid regurgitation. RVSP of approximately 80 mm Hg. There is no tricuspid valve prolapse or vegetation. There is no tricuspid valve stenosis. PULMONIC VALVE Doppler and Color Flow revealed mild pulmonic valvular regurgitation. There is no pulmonic valvular s tenosis. GREAT VESSELS The aortic root is normal in size. Not well seen. The IVC is normal in size and collapses >50% with i nspiration. PERICARDIAL EFFUSION There is no pleural effusion. There is no evidence of significant pericardial effusion. Critical Notification Physician Notified Date: 01/19/2017 Time: 17:31 Physician Name:Dr. Greene Critical Value: Yes Response Time:17:31 Report Read Back <Conclusion> The left ventricular systolic function is normal and the ejection fraction is within normal range. EF 55% There is normal LV segmental wall motion. The left atrium is severely dilated. Suspect mild to moderate calcific aortic stenosis. RANDI 1.4cm2. Doppler and Color Flow revealed moderate to severe tricuspid regurgitation. RVSP of approximately 80 mm Hg.
[2017-01-19] MEDS: SENNOSIDES/DOCUSATE 8.6/50MG TABLET. PO SCH (20:50)
[2017-01-19] MEDS: DIAZEPAM 10 MG/2 ML DISP.SYRIN. IV PRN (21:01)
--- NOTE | 2017-01-19 21:57 | PN ---
DATE: 01/19/2017 SUBJECTIVE: She was resting slightly propped up in bed, in no apparent distress. She is awake and alert. Continues to complain of headache, blurring of vision, and tendency to veer to the right side, although she manage to walk with a walker, managed to get to the bedside commode with 1-person assist this afternoon and she has had a shower obviously with assistance. Denied any diplopia. Denied any nausea or vomiting. PHYSICAL EXAMINATION: GENERAL: When I examined her, she looked pale, but no jaundice, cyanosis, or thyromegaly. No jugular venous distension. No limb edema. VITAL SIGNS: Her heart rate was 68, blood pressure was 131/64, temperature was 98, respiratory rate was 22 and oxygen saturation was 99% on 2 liters of oxygen. HEAD, EYES, EARS, NOSE AND THROAT: Showed normocephalic, atraumatic. NECK: Supple. HEART: Showed normal first and second heart sounds. No gallop, rub or murmur. CHEST: Clear to auscultation. No crepitation or rhonchi. ABDOMEN: Distended, soft, nontender. No guarding or rigidity. No organomegaly. Hernial orifices intact. Bowel sounds normal. NEUROLOGIC: She is awake, alert, responding appropriately. All her cranial nerves intact. She manage to walk with a walker, although she has a tendency to veer to the right side consistent with cerebellar ataxia. LABORATORY DATA: Her lab work this morning showed that her prothrombin time was 11.7 and INR 1.1. Her white cell count was 6700, hemoglobin 11, hematocrit 34, MCV 88 and platelet count 238,000. Her chemistry showed serum sodium of 129, potassium 3.8, chloride 93, bicarbonate 31, anion gap of 5, BUN 13, creatinine 1, estimated GFR was 54 mL per minute. Her glucose was 100, calcium was 9. Total bilirubin, AST, ALT, alkaline phosphatase were normal. Her total protein was 6.5. Albumin 3.2. Her serum triglycerides 139, total cholesterol 126, LDL was 33, VLDL was 7, HDL cholesterol was 86, and the ratio was 1. ASSESSMENT: Acute stroke including the right cerebellar area. 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 The right posterior inferior cerebellar artery is not identified. She has a large acute/early subacute right cerebellar infarct. PLAN: To continue with current medication. I will probably increase her Coumadin to 15 mg a day. [facility] if [facility] bed she will be transferred there today. ROSALINO DISLA MD DR: JIM/anitha JOB#: [id number] / [id number]
[2017-01-20] VITALS (7 sets, daily range): BP systolic 128–153; BP diastolic 59–73
[2017-01-20] MEDS: SILDENAFIL CITRATE 20 MG TABLET. PO SCH (08:24)
[2017-01-20] MEDS: SPIRONOLACTONE 25 MG TABLET PO SCH (08:26)
[2017-01-20] MEDS: FUROSEMIDE 40 MG TABLET PO SCH (08:26)
[2017-01-20] MEDS: MULTIVITAMIN with MINERAL TABLET. PO SCH (08:26)
[2017-01-20] MEDS: CARVEDILOL 12.5 MG TABLET PO SCH (08:26)
[2017-01-20] MEDS: LEVOTHYROXINE 50 MCG TABLET PO SCH (08:26)
[2017-01-20] MEDS: ENOXAPARIN ** NOTE DOSE ** SYRINGE SQ SCH (08:26)
[2017-01-20] MEDS: CALCIUM CARB/VIT D3 500/200 TABLET PO SCH (08:26)
[2017-01-20] MEDS: SENNOSIDES/DOCUSATE 8.6/50MG TABLET. PO SCH (08:26)
[2017-01-20] MEDS: AMLODIPINE BESYLATE 10 MG TABLET PO SCH (08:27)
[2017-01-20] MEDS: MECLIZINE 12.5 MG TABLET. PO PRN (10:23)
--- NOTE | 2017-01-20 14:03 | PN ---
DATE: SUBJECTIVE: The patient denies any new medical or neurological complaints. She continues to have dizziness described as vertigo and intermittent global headaches. She denies nausea, vomiting, chest pain, shortness of breath or palpitation, dysarthria or dysphagia. The patient was given IV diazepam last night and she had some adverse reaction to that. The nursing staff called me last night and stated that the patient became more sluggish . her one pupil was dilated along with low oxygen saturations. She recovered slowly after she was given oxygen. OBJECTIVE: GENERAL: Well-developed, well-nourished white female, not in any acute distress. VITAL SIGNS: Blood pressure 108/60, pulse is 62 and HEENT: Normocephalic, atraumatic; otherwise, unremarkable. NECK: Supple. Negative for carotid bruit, lymphadenopathy, JVD or thyromegaly. LUNGS: Clear to A and P. CARDIOVASCULAR: irregular irregular rhythm, normal S1 and S2. ABDOMEN: Soft, bowel sounds are positive. EXTREMITIES: Negative for cyanosis, clubbing or pitting edema. NEUROLOGICAL EXAM: 1. MENTAL STATUS: The patient is alert and oriented x 3. Speech is fluent. There is no language dysfunction. Cranial nerves are intact. 2. MOTOR: No focal muscle bulk was seen. The tone was normal. The strength was 4/5 throughout. 3. SENSORY: Revealed normal pinprick, light touch, vibratory and position senses. Deep tendon reflexes are symmetric and hypoactive without pathologic responses. 4. GAIT: The stance is unsteady. The patient has abnormal [id number], more prominent on the right side. IMPRESSION: 1. Status post acute/subacute stroke. Subacute right cerebellar stroke resulted in vertigo and abnormal gait. 2. Multiple medical problems including hypertension, atrial fibrillations, and arthritis. RECOMMENDATIONS: Continue with current management and physical therapy. We will discuss indication of Watchman device to prevent further stroke in this patient with atrial fibrillations and high risk of recurrent stroke. This procedure can be done at [facility]. Therefore, we will discuss with Dr Chang her director of special events in the main time will keep INR between 2.5-[address] Eric MEZA MD DR: LILLIE/anitha JOB#: [id number] / [id number] MTDRandy
--- NOTE | 2017-01-21 21:27 | DS ---
DATE OF DISCHARGE: 01/20/2017 HISTORY OF PRESENT ILLNESS: The patient is a 77-year-old female patient who came to our hospital as a direct transfer from [facility] for further care. The patient presented with chief complaint of severe dizziness and unsteady gait. She stated that the symptoms started the night before 9 p.m. The patient denies any headache, nausea, vomiting, chest pain or shortness of breath. She has had longstanding history of atrial fibrillation and hypertension. She apparently had a CT scan that revealed evidence of acute/subacute right cerebellar infarct. This was subsequently confirmed by an MRI done at [facility] with occlusion of the right vertebral artery and the posterior inferior cerebral artery. The patient initially continued to be extremely dizzy and veering towards the right side. She was started on diazepam as well as meclizine and her symptom has somewhat improved. She was able to walk with a walker with assistance, although she continued to be ataxic tending to fall to the right side, and it was felt that the patient would benefit from further rehabilitation and therefore she was evaluated, accepted, and transferred to [facility]. PHYSICAL EXAMINATION: GENERAL: On the day of discharge, she looked well and was clearly in no apparent respiratory distress. She was somewhat pale, but no jaundice, cyanosis or thyromegaly. No jugular venous distention. No limb edema. VITAL SIGNS: Her heart rate was 60, blood pressure was 153/68, temperature was 98, respiratory rate was 22 and oxygen saturation was 98% on 1-1/2 liters of oxygen. HEAD, EYES, EARS, NOSE AND THROAT: Showed normocephalic, atraumatic. NECK: Supple. HEART: Showed normal first and second heart sounds with no gallop, rub or murmur. CHEST: Clear to auscultation. No crepitation or rhonchi. ABDOMEN: Distended, soft, nontender. No guarding or rigidity. No organomegaly. Hernial orifices intact. Bowel sounds normal. NEUROLOGIC: She was awake, alert, responding appropriately. Cranial nerves intact. She moves extremities without difficulty. She actually was able to get out of bed to bedside commode and also walk with a walker. Denied any diplopia, but did complain that she tends to veer towards the right side, although her symptoms of dizziness have somewhat subsided. LABORATORY DATA: Showed a white cell count of 6700, hemoglobin 11, hematocrit 34, MCV was 88 and platelet count 238,000. Her chemistry showed a serum sodium of 129, potassium 3.8, chloride 93, bicarbonate 31, anion gap of 5, BUN 13, creatinine 1. Estimated GFR was 53 mL per minute. Her glucose was 100, calcium was 9. Total bilirubin, AST, ALT, alkaline phosphatase were normal. Her total protein was 6.5. Albumin 3.2. Her triglycerides were 39, total cholesterol was 126, LDL was 33, VLDL was 7, and HDL cholesterol was 86. Her prothrombin time was 14.7 and INR 1.4. DISCHARGE MEDICATIONS: The patient was discharged to [facility] to continue on her Lovenox 80 mg subcutaneously twice a day and her Coumadin was increased to 15 mg as she has been subtherapeutic despite being on 10 mg and while she was continued on amlodipine 10 mg once a day, calcium carbonate with vitamin D one tablet once a day, carvedilol long acting 40 mg once a day, Dexilant 60 mg once a day, dicyclomine 20 mg daily, furosemide 40 mg once a day, levothyroxine sodium 50 mcg once a day, multivitamin 1 tablet once a day, sildenafil citrate 20 mg 3 times a day, spironolactone 25 mg daily, tramadol 50 mg every 6 hours, and warfarin 15 mg p.o. daily. FINAL DISCHARGE DIAGNOSES: 1. 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 2. Chronic atrial fibrillation. 3. Hypertension. 4. Hypothyroidism. 5. Pulmonary hypertension. 6. Generalized osteoarthritis. 7. Vitamin D deficiency. ROSALINO DISLA MD DR: JIM/anitha JOB#: [id number] / [id number]
== END 2017-01-20 10:53 | disposition short-term general hospital (02) | DRG 65 ==
LOC: ICU 03:22
PROVIDERS: ADMIT Internal Medicine; ATTEND Internal Medicine
DX: I63.8 Other cerebral infarction (principal); E87.1 Hypo-osmolality and hyponatremia; E03.9 Hypothyroidism, unspecified; E55.9 Vitamin D deficiency, unspecified; E78.5 Hyperlipidemia, unspecified; I10 Essential (primary) hypertension; I27.2 Other secondary pulmonary hypertension; I48.2 Chronic atrial fibrillation; K58.9 Irritable bowel syndrome, unspecified; Z96.643 Presence of artificial hip joint, bilateral; Z96.652 Presence of left artificial knee joint; M15.9 Polyosteoarthritis, unspecified; I65.01 Occlusion and stenosis of right vertebral artery; Z88.0 Allergy status to penicillin; Z82.49 Family history of ischemic heart disease and other diseases of the circulatory system; Z86.73 Personal history of transient ischemic attack (TIA), and cerebral infarction without residual deficits; Z88.2 Allergy status to sulfonamides; Z88.8 Allergy status to other drugs, medicaments and biological substances; Z90.710 Acquired absence of both cervix and uterus; R27.0 Ataxia, unspecified
CPT/HCPCS: 36415; 70450; 70486; 80053; 80061; 81001; 83735; 85027; 85610; 87086; 87186; 87641; 93306; 93880; 97163; J1650; J8597

== ENCOUNTER 2017-06-18 10:18 | Emergency (ER) | payer MEDICARE, BC ==
[~2017-06-18] VITALS: Ht 162.6 cm; Wt 89.1 kg
[~2017-06-18 10:18] MED LIST changes: +AMLO10TA2 PO; +CALC-178 PO; -DEXL60CA PO; +DEXL60CA2 PO; +FURO-68 PO; +LEVO50TA5 PO; +MULT1TAB52 PO; +SILD20TA PO; +SPIR25TA3 PO; +TRAM50TA PO; +WARF5TAB7 PO
--- NOTE | 2017-06-18 10:59 | PHYS DOC ---
General Chief Complaint: LACERATION/AVULSION Stated Complaint: FALL/LACERATION AND HIT HEAD Time Seen by MD: 10:47 Source: patient Exam Limitations: no limitations Problems: History of Present Illness Initial Comments Pt is a very pleasant 77/F to ED c/o fall injury. Pt has h/o CVA with some right sided weakness, says she has frequent falls when she leads with right foot. Today pt in a parking lot using her walker and stepped off a curb with her right foot. She says she fell down catching herself with her arms (skin tear dorsal right hand) and hit her head on the car fender. No head trauma/LOC/neck pain, pt has mild global BENAVIDES. No nausea/focal weakness, pt says she only came for head CT due to coumadin (last INR two days ago 2.5). 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 Viera has recommended she come for head CT anytime she has had trauma. She says her Td is UTD and is refusing any treatment for the skin tear. I advised her that it appears the skin would hold sutures but she immediately shuts down discussions of wound repair each time it is brought up. She denies other injury from the fall. Occurred: just prior to arrival Severity: moderate Injuries/Pain Location: head, upper extremity Context: lost balance Loss of Consciousness: no loss of consciousness Associated Symptoms: headache, trouble walking (her baseline since CVA), other Allergies: Coded Allergies: nitrofurantoin (Verified Allergy, Intermediate, 02/21/14) Penicillins (Verified Allergy, Mild, 01/18/17) Has tolerated for up to a week before Sulfa (Sulfonamide Antibiotics) (Verified Allergy, Mild, 01/18/17) Has tolerated for up to a week before Past Medical History Medical History: heart disease (CVA, [place]) Surgical History: other (TKR) Social History Smoker: non-smoker Alcohol: none Drugs: none Review of Systems Constitutional: denies chills, denies diaphoresis, denies fever, denies malaise Eyes: denies blindness, denies blurred vision, denies pain, denies photophobia Ears, Nose, Mouth, Throat: denies ear pain, denies ear discharge, denies nose discharge, denies epistaxis, denies loose teeth, denies throat pain Respiratory: denies cough, denies shortness of breath, denies wheezing Cardiovascular: denies chest pain, denies palpitations, denies syncope Gastrointestinal: denies abdominal pain, denies nausea, denies vomiting Genitourinary: denies dysuria, denies frequency Musculoskeletal: see HPI Skin: see HPI Psychiatric/Neurological: see HPI Physical Exam General Appearance: WD/WN, no apparent distress (very talkative) Head: other (negative Mares/raccoon eyes, no bony TTP. Occipital hematoma approx 4cm noted, tender no skin breaks) Eyes: bilateral eye normal inspection, bilateral eye PERRL, bilateral eye EOMI Ears, Nose, Mouth, Throat: hearing grossly normal, no evidence of ENT injury ( no ear/nose discharge no fluid behind TMs b/l), no dental injury Neck: non-tender, full range of motion, normal alignment, normal inspection Cardiovascular/Respiratory: normal peripheral pulses, no respiratory distress Gastrointestinal: non tender, soft Back: no CVA tenderness, no vertebral tenderness Extremities: no evidence of injury, normal range of motion, non-tender Neurologic/Psychiatric: disc pad plate filler II-XII nml as tested, alert, normal mood/affect, oriented x 3, other (some right sided weakness is noted) Skin: normal color, warm/dry (chronic skin changes b/l UE d/t coumadin. 3cm superficial clean linear skin avulsion dorsal right hand, no bleeding/FB) Nicki Coma Score Best Eye Response: (4) open spontaneously Best Verbal Response: (5) oriented Best Motor Response: (6) obeys commands Orders, Labs, Meds Dorsal left hand skin avulsion cleansed and sterile dressing placed by medic. PATIENT: THUY CARMICHAEL ACCOUNT: [id number] : 1940 LOCATION: ER AGE: 77 SEX: F EXAM STATUS: REG ER ORD. PHYSICIAN: LION DENTON DO REASON: head trauma, coumadin PROCEDURE: CT HEAD WO CONTRAST CT scan of the head without contrast 06/18/2017 Clinical History: Fall with head trauma.. Technique: Unenhanced, contiguous, 5 mm axial sections were obtained through the head. One or more of the following individualized dose reduction techniques were utilized for this study: 1. Automated exposure control. 2. Adjustment of the mA and/or kV according to patient size. 3. Use of iterative reconstruction technique. Findings: Comparison study is dated 01/18/2017. There is generalized parenchymal atrophy. Small scattered areas of decreased attenuation are seen within the periventricular and subcortical white matter of both cerebral hemispheres consistent with areas of small vessel ischemic disease. An area of encephalomalacia is seen involving the right cerebellar hemisphere. No acute parenchymal abnormality is seen. No extra-axial fluid collection is noted. No skull fracture is seen. Impression: . No acute intracranial abnormality is seen. DICTATED AND SIGNED BY: RC ERICKSON MD DATE: 06/18/17 1135 CC: DEVANG HARRELL MD; LION DENTON DO ~ 1149: Medic says Pt now c/o left sided rib pain, no sob. After discussing with her she thinks she hit her left rib cage at some point during the fall. She denies any shortness of breath there is no focal point tenderness, paradoxical motion or swelling. There is generalized tenderness to the area without any skin changes and the patient doesn't want any pain medications. Radiographs ordered, pt will have prolonged ED course due to RAD delay. PATIENT: THUY CARMICHAEL ACCOUNT: [id number] : 1940 LOCATION: ER AGE: 77 SEX: F EXAM STATUS: REG ER ORD. PHYSICIAN: LION DENTON DO REASON: fall, rib pain (left) PROCEDURE: RIBS LEFT AND PA CHEST Left rib series 06/18/2017 Clinical history: Patient fell with left rib pain. A PA digital radiograph of the chest was obtained. 2 AP and an oblique digital radiographs of the left ribs were obtained. Comparison study is dated 10/19/2013. The cardiac silhouette is mildly enlarged. The thoracic aorta is tortuous. Atherosclerotic calcification of the thoracic aorta is seen. No acute pulmonary infiltrate is noted. No pneumothorax or pleural effusion is seen. Degenerative changes are seen involving the thoracic spine and both shoulders. There is diffuse osteopenia of the visualized bony structures. No left-sided rib fracture is seen. Impression: No left-sided rib fractures seen. DICTATED AND SIGNED BY: RC ERICKSON MD DATE: 06/18/17 1238 CC: DEVANG HARRELL MD; LION DENTON DO ~ I rechecked the patient once her rib films were completed. She denies any new or progressive symptoms and says her headache is better. She is eagerly anticipating discharge, I discussed concussion precautions and wound care for her left hand. She expressed agreement and understanding with the treatment plan and agrees to follow-up with Dr. Harrell this week. Departure Time of Disposition: 12:51 Disposition: 01 HOME, SELF-CARE Diagnosis: fall, concussion, skin avulsion left hand, anticoa Condition: GOOD Patient Instructions: Concussion and Brain Injury, [id number], Fall Prevention and Home Safety, [id number] Additional Instructions: No strenuous activity or exertion until cleared by doctor. Ice to painful areas 20minutes, 4-6 times daily for 48 hours. OTC tylenol as needed. Keep sterile dressing on left hand wound until healed completely. Wash wound twice daily with soap and warm water, blot dry. Change dressing after each wash. Follow up with Dr Harrell in 3-5 days for recheck. Return to ED with new or changing symptoms. LION DENTON DO Jun 18, 2017 10:59
--- NOTE | 2017-06-18 11:41 | RAD ---
CT scan of the head without contrast 06/18/2017 Clinical History: Fall with head trauma.. Technique: Unenhanced, contiguous, 5 mm axial sections were obtained through the head. One or more of the following individualized dose reduction techniques were utilized for this study: 1. Automated exposure control. 2. Adjustment of the mA and/or kV according to patient size. 3. Use of iterative reconstruction technique. Findings: Comparison study is dated 01/18/2017. There is generalized parenchymal atrophy. Small scattered areas of decreased attenuation are seen within the periventricular and subcortical white matter of both cerebral hemispheres consistent with areas of small vessel ischemic disease. An area of encephalomalacia is seen involving the right cerebellar hemisphere. No acute parenchymal abnormality is seen. No extra-axial fluid collection is noted. No skull fracture is seen. Impression: . No acute intracranial abnormality is seen.
--- NOTE | 2017-06-18 12:42 | RAD ---
Left rib series 06/18/2017 Clinical history: Patient fell with left rib pain. A PA digital radiograph of the chest was obtained. 2 AP and an oblique digital radiographs of the left ribs were obtained. Comparison study is dated 10/19/2013. The cardiac silhouette is mildly enlarged. The thoracic aorta is tortuous. Atherosclerotic calcification of the thoracic aorta is seen. No acute pulmonary infiltrate is noted. No pneumothorax or pleural effusion is seen. Degenerative changes are seen involving the thoracic spine and both shoulders. There is diffuse osteopenia of the visualized bony structures. No left-sided rib fracture is seen. Impression: No left-sided rib fractures seen.
[2017-06-18 13:07] VITALS: BP 138/83
== END 2017-06-18 13:00 | disposition home or self-care (01) ==
LOC: ER 10:18
DX: S06.0X0A Concussion without loss of consciousness, initial encounter (principal); S61.402A Unspecified open wound of left hand, initial encounter; R29.6 Repeated falls; I25.2 Old myocardial infarction; Z86.73 Personal history of transient ischemic attack (TIA), and cerebral infarction without residual deficits; Z88.0 Allergy status to penicillin; Z88.2 Allergy status to sulfonamides; Z88.8 Allergy status to other drugs, medicaments and biological substances; Z79.02 Long term (current) use of antithrombotics/antiplatelets; W19.XXXA Unspecified fall, initial encounter; Y93.01 Activity, walking, marching and hiking; Y99.8 Other external cause status; Y92.481 Parking lot as the place of occurrence of the external cause
CPT/HCPCS: 70450; 71101; 99284-25

== ENCOUNTER 2020-10-09 06:32 | Inpatient (IN) | payer MEDICARE, BC ==
[~2020-10-09] VITALS: Ht 162.6 cm; Wt 87.3 kg
[~2020-10-09 06:32] MED LIST changes: +AMLO-187 PO; -AMLO10TA2 PO; +MULT-445 PO; -MULT1TAB52 PO; -SPIR25TA3 PO; +SPIR25TA5 PO; +WARF-31 PO; -WARF5TAB7 PO
--- NOTE | 2020-10-09 06:48 | PHYS DOC ---
Past History Past Medical History: A-Fib, CAD, CVA, ID Past Surgical History: Knee Replacement Alcohol Use: None Drug Use: None Adult General Chief Complaint Chief Complaint: LOWER EXTREMITY EDEMA HPI HPI Patient is a 80-year-old female presenting via EMS for chest pain and shortness of breath. Patient reports this is an acute on chronic issue. Reports symptoms really started worsening past baseline approximately 1 week ago. She has history of congestive heart failure with unknown ejection fraction, is followed in outpatient setting by primary care physician and ticketing agent. Recently switched from Lasix to torsemide for worsening lower extremity edema approximately 1 month ago ago. She has been taking all medications as prescribed per patient report. Nonetheless, for past x1 week patient has had worsened paroxysmal dyspnea, exertional dyspnea, and lower extremity edema. She has been having intermittent chest pain that is left-sided in nature without radiation and self-limiting in less than 1 minute. She is permanently in atrial fibrillation and takes warfarin for this, denies any palpitations or other concerning symptoms such as lightheaded/dizziness and/or falls. Patient reports x2 of her 5 children tested positive for Covid but she has not seen them for 3 weeks, denies fever or productive cough at this time. She called her children and told them of her symptoms this morning and they subsequently were worried about patient and called EMS for evaluation and ultimate transport to our facility for further evaluation. On arrival to our facility, patient's vitals remarkable for room air hypoxia at 80% on room air, patient does not have any supplemental oxygen requirements at home Review of Systems Review of Systems Fourteen body systems of review of systems have been reviewed. See HPI for pertinent positives and negative responses, other brenner all other systems are negative, non-pertinent or non-contributory Allergies Allergies Allergies Coded Allergies Type Severity Reaction Last Updated Verified nitrofurantoin Allergy Intermediate 02/21/14 Yes Penicillins Allergy Mild 01/18/17 Yes Sulfa (Sulfonamide Antibiotics) Allergy Mild 01/18/17 Yes Physical Exam Physical Exam Constitutional: Well developed, well nourished, nontoxic appearing, ambulatory with assistance from EMS gurney into ER room in bed. HENT: Normocephalic, atraumatic, bilateral external ears normal, oropharynx dry, no oral exudates, nose normal. Eyes: PERRLA, EOMI, conjunctiva normal, no discharge. Neck: Normal range of motion, no tenderness, supple, no stridor. Cardiovascular: Heart rate regular, irregular rhythm, no rubs or gallops, 3+ holosystolic murmur Lungs & Thorax: No overt respiratory distress but increased work of breathing, patient typically not on home oxygen but requiring supplemental oxygen 2 L via nasal cannula to keep oxygen saturations greater than 90% Abdomen: Bowel sounds normal, soft, no tenderness, no masses, no pulsatile masses. Nonsurgical abdomen, no peritoneal signs Skin: Warm, dry, no erythema, no rash. Back: No tenderness, no CVA tenderness. Extremities: No tenderness, no cyanosis, no clubbing, ROM intact, bilateral lower extremity edema pitting 1+ Neurologic: Alert and oriented X 3, grossly normal motor & sensory function, no focal deficits noted. Unstable gait at baseline, uses walker at home to ambulate Psychologic: Affect normal, judgement normal, anxious mood Current Patient Data Vital Signs Vital Signs Date Time Temp Pulse Resp B/P (MAP) Pulse Ox O2 Delivery O2 Flow Rate FiO2 10/09/20 06:32 97.6 66 20 114/54 (74) 90 Nasal Cannula 2.0 Lab Results Laboratory Tests Test 10/09/20 06:47 White Blood Count 6.9 x10^3/uL (4.0-11.0) Red Blood Count 4.33 x10^6/uL (3.50-5.40) Hemoglobin 11.8 g/dL (12.0-15.5) Hematocrit 37.1 % (36.0-47.0) Mean Corpuscular Volume 86 fL (79-100) Mean Corpuscular Hemoglobin 27 pg (25-35) Mean Corpuscular Hemoglobin Concent 32 g/dL (31-37) Red Cell Distribution Width 15.3 % (11.5-14.5) Platelet Count 210 x10^3/uL (140-400) Neutrophils (%) (Auto) 80 % (31-73) Lymphocytes (%) (Auto) 10 % (24-48) Monocytes (%) (Auto) 9 % (0-9) Eosinophils (%) (Auto) 1 % (0-3) Basophils (%) (Auto) 0 % (0-3) Neutrophils # (Auto) 5.5 x10^3uL (1.8-7.7) Lymphocytes # (Auto) 0.7 x10^3/uL (1.0-4.8) Monocytes # (Auto) 0.6 x10^3/uL (0.0-1.1) Eosinophils # (Auto) 0.1 x10^3/uL (0.0-0.7) Basophils # (Auto) 0.0 x10^3/uL (0.0-0.2) Prothrombin Time 35.4 SEC (9.4-11.4) Prothromb Time International Ratio 3.6 (0.9-1.1) Activated Partial Thromboplast Time 42 SEC (23-33) Sodium Level 142 mmol/L (136-145) Potassium Level 4.1 mmol/L (3.5-5.1) Chloride Level 103 mmol/L (98-107) Carbon Dioxide Level 31 mmol/L (21-32) Anion Gap 8 (6-14) Blood Urea Nitrogen 43 mg/dL (7-20) Creatinine 1.4 mg/dL (0.6-1.0) Estimated GFR (Cockcroft-Gault) 36.0 BUN/Creatinine Ratio 31 (6-20) Glucose Level 128 mg/dL (70-99) Calcium Level 9.0 mg/dL (8.5-10.1) Total Bilirubin 1.1 mg/dL (0.2-1.0) Aspartate Amino Transf (AST/SGOT) 26 U/L (15-37) Alanine Aminotransferase (ALT/SGPT) 33 U/L (14-59) Alkaline Phosphatase 70 U/L (46-116) Troponin I Quantitative < 0.017 ng/mL (0-0.055) WE-Ptt-G-Type Natriuretic Peptide 4128 pg/mL (0-449) Total Protein 8.0 g/dL (6.4-8.2) Albumin 3.7 g/dL (3.4-5.0) Albumin/Globulin Ratio 0.9 (1.0-1.7) EKG EKG EKG ordered and interpreted by myself at 0653 hrs. as atrial fibrillation with ventricular rate of 61 bpm, unremarkable QRS and QT intervals, no axis deviation , no acute ischemic findings, no STEMI Radiology/Procedures Radiology/Procedures PORTABLE CHEST 1V History: Reason: SHOB, CHF, NON-PRODUCTIVE COUGH / Spl. Instructions: / History: Comparison: June 18, 2017 Findings: Diffuse interstitial and alveolar opacities. Low lung volumes. Enlarged cardiac size. No pneumothorax. Advanced bilateral glenohumeral degenerative changes with remodeling of the humeral heads, progressed compared to 2017. Impression: 1. Diffuse interstitial and alveolar opacities, may represent pulmonary edema or infection including viral pneumonia. 2. Enlarged cardiac size, may represent cardiomegaly and potential pericardial effusion. 3. Progressive bilateral glenohumeral advanced degenerative changes with remodeling of the humeral heads, can be seen with inflammatory arthropathy such as rheumatoid arthritis. Electronically signed by: Bret Judd DO (10/09/2020 7:15 AM) [id number] Heart Score HEART Score for Chest Pain: HEART Score for Chest Pain Response (Comments) Value History Moderately Suspicious 1 ECG Normal 0 Age > 65 2 Risk Factors >3 Risk Factors or Hx CAD 2 Troponin < Normal Limit 0 Total 5 Risk Factors: Risk Factors: DM, Current or recent (<one month) smoker, HTN, HLP, family history of CAD, obesity. Risk Scores: Risk Factors: DM, Current or recent (<one month) smoker, HTN, HLP, family history of CAD, obesity. Course & Med Decision Making Course & Med Decision Making Airway patent, increased work of breathing present on arrival, vitals remarkable for room air hypoxia 80% on room air in a patient with no home oxygen Pertinent Labs and Imaging studies reviewed. (See chart for details) Discussed most likely diagnosis of acute pulmonary edema secondary to congestive heart failure versus known pulmonary hypertension. Cannot exclude COVID-19 given suspect contact with known positive children, patient swabbed today and test pending Patient on 20 mg torsemide which is equivalent to 40 mg p.o. Lasix, as such 40 mg IV Lasix administered for IV diuresis. Supplemental oxygen applied while in ER with improvement in patient's oxygen saturations and overall clinical picture. Nonetheless, she will require admission I discussed case with Dr. Massey who agreed need of admission and accepted patient under his care at [facility]. I updated patient on plan of care and she was amenable to admission. All questions and concerns addressed. Patient confirms she is DNR status with prior paperwork filled out in outpatient setting. Patient admitted to [facility] in stable condition for further care Dragon Disclaimer Dragon Disclaimer This electronic medical record was generated, in whole or in part, using a voice recognition dictation system. Departure Departure: Impression: Primary Impression: Pulmonary edema Additional Impressions: History of congestive heart failure History of pulmonary hypertension Person under investigation for COVID-19 Atrial fibrillation Warfarin anticoagulation DNR (do not resuscitate) Disposition: 09 ADMITTED INPT THIS HOSP Admitting Physician: Luna Massey Condition: STABLE Referrals: DEVANG BATES MD (PCP) Problem Qualifiers CARLINE AMARO DO Oct 09, 2020 06:48
[2020-10-09] MEDS ORDERED: FUROSEMIDE 40 MG/4 ML VIAL IVP ONE (07:00)
[2020-10-09] MEDS ORDERED: ASPIRIN CHEWABLE 81 MG TABLET. PO ONE (07:00)
[2020-10-09 07:01] LABS: BASO % 0 % (0-3); EOS # 0.1 x10^3/uL (0.0-0.7); EOS % 1 % (0-3); HEMATOCRIT 37.1 % (36.0-47.0); HEMOGLOBIN 11.8 g/dL (12.0-15.5); LYMPH # 0.7 x10^3/uL (1.0-4.8); LYMPH % 10 % (24-48); MEAN CORPUSCULAR HEMOGLOBIN 27 pg (25-35); MEAN CORPUSCULAR HGB CONC 32 g/dL (31-37); MEAN CORPUSCULAR VOLUME 86 fL (79-100); MONO # 0.6 x10^3/uL (0.0-1.1); MONO % 9 % (0-9); NEUT # 5.5 x10^3uL (1.8-7.7); NEUT % 80 % (31-73); PLATELET COUNT 210 x10^3/uL (140-400); RED BLOOD COUNT 4.33 x10^6/uL (3.50-5.40); RED CELL DISTRIBUTION WIDTH 15.3 % (11.5-14.5); WHITE BLOOD COUNT 6.9 x10^3/uL (4.0-11.0)
[2020-10-09 07:07] LABS: CREATININE 1.4 mg/dL (0.6-1.0); POTASSIUM 4.1 mmol/L (3.5-5.1)
--- NOTE | 2020-10-09 07:18 | RAD ---
PORTABLE CHEST 1V History: Reason: SHOB, CHF, NON-PRODUCTIVE COUGH / Spl. Instructions: / History: Comparison: June 18, 2017 Findings: Diffuse interstitial and alveolar opacities. Low lung volumes. Enlarged cardiac size. No pneumothorax. Advanced bilateral glenohumeral degenerative changes with remodeling of the humeral heads, progressed compared to 2017. Impression: 1. Diffuse interstitial and alveolar opacities, may represent pulmonary edema or infection including viral pneumonia. 2. Enlarged cardiac size, may represent cardiomegaly and potential pericardial effusion. 3. Progressive bilateral glenohumeral advanced degenerative changes with remodeling of the humeral heads, can be seen with inflammatory arthropathy such as rheumatoid arthritis. Electronically signed by: Bret Judd DO (10/09/2020 7:15 AM) [id number]
[2020-10-09 07:20] LABS: ALBUMIN 3.7 g/dL (3.4-5.0); ALBUMIN/GLOBULIN RATIO 0.9 (1.0-1.7); TOTAL BILIRUBIN 1.1 mg/dL (0.2-1.0)
--- NOTE | 2020-10-09 09:53 | EKG ---
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
[2020-10-09 11:10] VITALS: BP 133/81
[2020-10-09] MEDS ORDERED: CARV40CP5 PO (12:34)
[2020-10-09] MEDS ORDERED: TORS20TA2 PO (12:34)
[2020-10-09] MEDS ORDERED: WARF4TAB64 PO (12:34)
--- NOTE | 2020-10-09 12:54 | NUR ---
NURSING NOTE: ADMISSION PT ADMITTED TO UNIT VIA EMS. PT SETTLED IN ROOM, ORIENTED TO UNIT. PT VITALS TAKEN. PT RESTING IN BED WITH NO COMPLAINTS. WILL CONTINUE TO MONITOR. GIULIANA GARCIA
[2020-10-09 14:51] VITALS: BP 104/76
[2020-10-09] MEDS ORDERED: traMADol 50 MG TABLET PO PRN (17:45)
[2020-10-09] MEDS ORDERED: DICYCLOMINE HCL 20 MG TABLET PO PRN (17:45)
[2020-10-09 19:45] VITALS: BP 106/65
[2020-10-09] MEDS: SILDENAFIL CITRATE 20 MG TABLET. PO SCH (21:00)
[2020-10-09 22:39] VITALS: BP 122/76
--- NOTE | 2020-10-10 01:11 | HP ---
ADMIT DATE: 10/09/2020 HISTORY OF PRESENT ILLNESS: The patient is an 80-year-old female patient who came to the Emergency Room with a complaint of chest pain and shortness of breath. This has been an acute on chronic issue. The patient stated that her symptoms started approximately 1 week ago. She is known to have congestive heart failure with an ejection fraction her last admission about 55%. She complained that she has like a pressure on the left side of the chest whenever she exerts herself; however, she has no shortness of breath when she is at rest. She apparently was recently switched from Lasix to torsemide for worsening lower extremity edema approximately a month ago by her stainless steel finisher, Dr. Viera. She has been taking all medications as prescribed by her doctor. Nonetheless, over the past 1 week, the patient has worsening exertional dyspnea and her lower extremity has also increased. She has also intermittent chest pressure on the left side of the chest without radiation that usually improves with rest. She is known to have atrial fibrillation and she takes warfarin. She checked the INR at home and called the doctor's office to adjust her Coumadin. One thing of note is that about 3 weeks ago, she started having Meals on Wheels and according to her, she has been eating more since she has this Meals on Wheels; however, it is unknown whether she has high salt diet. She normally does not add salt and she cooks herself and therefore, the patient decided to come to the Emergency Room where she was evaluated and she was found to be hypoxic with an oxygen saturation of only 80% on room air that improved with supplemental oxygen. She was extensively investigated including lab work and imaging studies. Her chest x-ray showed the patient has diffuse interstitial and alveolar opacities, may represent pulmonary edema or infection including viral pneumonia. She has enlarged cardiac size; may represent cardiomegaly or potential pericardial effusion. She has progressive bilateral glenohumeral advanced degenerative changes with remodeling of the humeral head, can be seen with inflammatory arthropathy such as rheumatoid arthritis. Her chemistry showed that her beta natriuretic peptide was high at 4000, slightly impaired kidney function. Her prothrombin time was 35.4, INR 3.6, and aPTT was 42. The patient was admitted with acute on chronic diastolic congestive heart failure. She was treated with IV Lasix and aspirin and was admitted for further evaluation and treatment. She has so far 2 sets of cardiac enzymes that were negative and ruled out at least initially acute myocardial infarction. PAST MEDICAL HISTORY: Significant for chronic atrial fibrillation, hypertension, pulmonary hypertension, hyperlipidemia, possible DVT and PE. She has a cardiac catheterization, reportedly normal coronaries a couple of years. PAST SURGICAL HISTORY: Significant for hip surgery and hysterectomy. FAMILY HISTORY: Significant for hypertension, coronary artery disease. SOCIAL HISTORY: She is and lives alone, but her children keep an eye on her. 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 She does not smoke, drink alcohol or use recreational drugs. She usually walks at home with a walker. ALLERGIES: SHE IS ALLERGIC TO PENICILLIN, SULFA ANTIBIOTIC AND NITROFURANTOIN. MEDICATIONS: She is currently on following medications: She is on dicyclomine 20 mg daily, Coumadin 4 mg daily. She is on sildenafil 20 mg 3 times a day, carvedilol phosphate extended release 40 mg once a day, amlodipine besylate 10 mg daily, tramadol 50 mg every 6 hours, calcium carbonate with vitamin D3 one tablet once a day, torsemide 20 mg once a day, levothyroxine sodium 50 mcg daily. REVIEW OF SYSTEMS: As per history of present illness. PHYSICAL EXAMINATION: GENERAL: On arrival to the Emergency Room, the patient was slightly tachypneic. There is no pallor, jaundice, cyanosis or thyromegaly. No jugular venous distention. No limb edema. VITAL SIGNS: Her heart rate was 66, blood pressure 114/54, temperature was 97.6, respiratory rate 20, and oxygen saturation was 90% on 2 liters of oxygen. HEAD, EYES, EARS, NOSE AND THROAT: Showed normocephalic, atraumatic. NECK: Supple. HEART: Showed normal first and second heart sounds. No gallop or murmur. CHEST: Shows central trachea, equal bilateral chest expansion, air entry, vesicular sounds with bilateral basal crepitation posteriorly, more pronounced in the left side posteriorly. I could not appreciate any rhonchi. ABDOMEN: Distended, soft, nontender. NEUROLOGIC: She is awake, alert. She does have right-sided hemiparesis. LABORATORY DATA: Her lab work on admission showed a white cell count of 6900, hemoglobin 11.8, hematocrit 37, MCV 86 and platelet count 210,000 with normal manual differential. Her chemistry showed a serum sodium 142, potassium 4.1, chloride 103, bicarbonate 31, anion gap of 8, BUN 43, creatinine 1.4, estimated GFR was 36 mL per minute. Her glucose was 128, calcium was 9. Total bilirubin 1.1. AST, ALT, alkaline phosphatase were normal. Her first troponin was less than 0.017. Her beta natriuretic peptide was 4128. Total protein 8, albumin was 3.7. Her prothrombin time was 35.4, INR 3.6, and aPTT was 42. ASSESSMENT AND PLAN: In summary, this is an 80-year-old female patient who was admitted with acute on chronic diastolic congestive heart failure. Her most recent echocardiogram done on 01/18/2017 showed her ejection fraction at that time to be 55% with normal left ventricular segmental wall motion, the left atrium is severely dilated and suspected mild to moderate calcific aortic stenosis, aortic valve area is 1.4 square cm. Doppler and color flow revealed moderate to severe tricuspid regurgitation, right ventricular systolic pressure approximately 80 mmHg. Other medical problems include obviously hypertension, atrial fibrillation, hyperlipidemia, possible deep vein thrombosis and pulmonary embolism. My plan is to reconcile all her medications. I will check another set of cardiac enzymes, check her lipid profile, consult the Cardiology and start her on IV Lasix. We will monitor her PT/INR and adjust Coumadin to maintain INR between 2-2.5. ROSALINO DISLA MD DR: JIM/anitha JOB#: [id number] / [id number]
[2020-10-10 05:00] VITALS: BP 136/70
[2020-10-10] MEDS: LEVOTHYROXINE 50 MCG TABLET PO SCH (05:46)
[2020-10-10] MEDS ORDERED: CARVEDILOL 12.5 MG TABLET PO SCH (08:00)
[2020-10-10] MEDS: SILDENAFIL CITRATE 20 MG TABLET. PO SCH ×3 (09:00→21:00)
[2020-10-10] MEDS ORDERED: TORSEMIDE 20 MG TABLET. PO SCH (09:00)
[2020-10-10 09:27] LABS: HEMATOCRIT 35.3 % (36.0-47.0); HEMOGLOBIN 11.1 g/dL (12.0-15.5); RED BLOOD COUNT 4.05 x10^6/uL (3.50-5.40); RED CELL DISTRIBUTION WIDTH 15.2 % (11.5-14.5); WHITE BLOOD COUNT 5.3 x10^3/uL (4.0-11.0)
[2020-10-10] MEDS: FUROSEMIDE 40 MG/4 ML VIAL IVP SCH (09:52)
[2020-10-10] MEDS: CALCIUM CARB/VIT D3 500/200 TABLET PO SCH (09:52)
[2020-10-10] MEDS: amLODIPine BESYLATE 10 MG TABLET PO SCH (09:53)
[2020-10-10] MEDS: CARVEDILOL 6.25 MG TABLET PO SCH ×2 (09:53→17:00)
[2020-10-10 11:05] VITALS: BP 114/59
[2020-10-10 14:11] LABS: ALBUMIN 3.3 g/dL (3.4-5.0); ALBUMIN/GLOBULIN RATIO 0.8 (1.0-1.7); CALCIUM 8.8 mg/dL (8.5-10.1); CREATININE 1.4 mg/dL (0.6-1.0); TOTAL BILIRUBIN 1.2 mg/dL (0.2-1.0); TOTAL PROTEIN 7.5 g/dL (6.4-8.2)
--- NOTE | 2020-10-10 14:22 | PDOC2 ---
CONSULT DOS: DATE: 10/10/20 TIME: 14:14 Reason for Consult: Heart failure Referring Physician: Dr. Massey Chief Complaint Shortness of breath Source: Chart review, Patient Problem List Problems Medical Problems: (1) Atrial fibrillation Status: Acute (2) DNR (do not resuscitate) Status: Acute (3) History of congestive heart failure Status: Acute (4) History of pulmonary hypertension Status: Acute (5) Person under investigation for COVID-19 Status: Acute (6) Pulmonary edema Status: Acute (7) Warfarin anticoagulation Status: Acute History of Present Illness The patient is an 80-year-old female who presented to the emergency room with episodes of increasing shortness of breath and somewhat atypical chest discomfort. Her evaluation included an EKG that showed rate controlled atrial fibrillation and no acute ischemic changes. Chest x-ray showed diffuse interstitial opacities consistent with possible pulmonary edema or a viral pneumonia. She also had an enlarged cardiac size. BNP was elevated at 4000. INR was 3.6. Initial O2 saturation was 80%. She was treated with IV Lasix and has felt better overnight. Her director hardware is Dr. Chris Davis. An echocardiogram from 2017 showed a normal ejection fraction at 55%. The patient also has a diagnosis of pulmonary hypertension. Cardiovascular: AFIB, CHF, pulmonary hypertension Pulmonary: Bronchitis CENTRAL NERVOUS SYSTEM: CVA Musculoskeletal: Osteoarthritis Past Surgical History: Total hip replacement Family History: Heart Disease, Hypertension Smoke: No ALCOHOL: none Current Medications Current Medications Aspirin (Aspirin Chewable) 162 mg 1X ONCE PO Last administered on 10/09/20at 06:56; Start 10/09/20 at 07:00; Stop 10/09/20 at 07:01; Status DC Furosemide (Lasix) 40 mg 1X ONCE IVP Last administered on 10/09/20at 06:56; Start 10/09/20 at 07:00; Stop 10/09/20 at 07:01; Status DC Amlodipine Besylate (Norvasc) 10 mg DAILY PO Last administered on 10/10/20at 09:53; Start 10/10/20 at 09:00 Dicyclomine HCl (Bentyl) 20 mg PRN DAILY PRN PO IBS; Start 10/09/20 at 17:45 Levothyroxine Sodium (Synthroid) 50 mcg DAILY06 PO Last administered on 10/10/20at 05:46; Start 10/10/20 at 06:00 Sildenafil Citrate (Revatio) 20 mg TID PO Last administered on 10/10/20at 09:00; Start 10/09/20 at 21:00 Torsemide (Demadex) 20 mg DAILY PO ; Start 10/10/20 at 09:00; Status UNV Tramadol HCl (Ultram) 50 mg PRN Q6HRS PRN PO PAIN; Start 10/09/20 at 17:45 Calcium/Vitamin D (Oscal D 500mg/ 200uts) 1 tab DAILY PO Last administered on 10/10/20at 09:52; Start 10/10/20 at 09:00 Carvedilol (Coreg) 12.5 mg BIDWMEALS PO ; Start 10/10/20 at 08:00; Stop 10/09/20 at 19:12; Status DC Furosemide (Lasix) 40 mg DAILY IVP Last administered on 10/10/20at 09:52; Start 10/10/20 at 09:00 Carvedilol (Coreg) 6.25 mg BIDWMEALS PO Last administered on 10/10/20at 09:53; Start 10/10/20 at 08:00 Active Scripts Active Reported Carvedilol ER (Carvedilol Phosphate) 40 Mg Cpmp.24hr 1 Cap PO DAILY Torsemide 20 Mg Tablet 1 Tab PO DAILY Warfarin Sodium 4 Mg Tablet 1 Tab PO DAILY Calcium 1,000 + D3 Caplet (Calcium Carbonate/Vitamin D3) 1 Each Tablet 1 Each PO DAILY Tramadol Hcl (Tramadol HCl) 50 Mg Tablet 50 Mg PO PRN Q6HRS PRN Amlodipine Besylate 10 Mg Tablet 1 Tab PO DAILY Levothyroxine Sodium 50 Mcg Tablet 50 Mcg PO DAILYAC LAST DOSE GIVEN: DATE: TIME: NEXT DOSE DUE: DATE: TIME: Sildenafil (Sildenafil Citrate) 20 Mg Tablet 20 Mg PO TID LAST DOSE GIVEN: DATE: TIME: NEXT DOSE DUE: DATE: TIME: Dicyclomine Hcl 20 Mg Tablet 20 Mg PO DAILY PRN LAST DOSE GIVEN: DATE: TIME: NEXT DOSE DUE: DATE: TIME: Allergies: Coded Allergies: nitrofurantoin (Verified Allergy, Intermediate, 02/21/14) Penicillins (Verified Allergy, Mild, 01/18/17) Has tolerated for up to a week before Sulfa (Sulfonamide Antibiotics) (Verified Allergy, Mild, 01/18/17) Has tolerated for up to a week before General: YES: Fatigue Respiratory: YES: Shortness of breath, SOB with excertion Physical Exam Visual examination as per Covid status. VITALS Vital Signs Date Time Temp Pulse Resp B/P (MAP) Pulse Ox O2 Delivery O2 Flow Rate FiO2 10/10/20 11:05 97.2 65 24 114/59 (77) 94 Nasal Cannula 3.0 Labs Laboratory Tests Test 10/09/20 06:47 10/09/20 15:24 10/09/20 19:24 10/10/20 08:35 White Blood Count 6.9 x10^3/uL (4.0-11.0) 5.3 x10^3/uL (4.0-11.0) Red Blood Count 4.33 x10^6/uL (3.50-5.40) 4.05 x10^6/uL (3.50-5.40) Hemoglobin 11.8 g/dL (12.0-15.5) 11.1 g/dL (12.0-15.5) Hematocrit 37.1 % (36.0-47.0) 35.3 % (36.0-47.0) Mean Corpuscular Volume 86 fL (79-100) 87 fL (79-100) Mean Corpuscular Hemoglobin 27 pg (25-35) 28 pg (25-35) Mean Corpuscular Hemoglobin Concent 32 g/dL (31-37) 32 g/dL (31-37) Red Cell Distribution Width 15.3 % (11.5-14.5) 15.2 % (11.5-14.5) Platelet Count 210 x10^3/uL (140-400) 199 x10^3/uL (140-400) Neutrophils (%) (Auto) 80 % (31-73) Lymphocytes (%) (Auto) 10 % (24-48) Monocytes (%) (Auto) 9 % (0-9) Eosinophils (%) (Auto) 1 % (0-3) Basophils (%) (Auto) 0 % (0-3) Neutrophils # (Auto) 5.5 x10^3uL (1.8-7.7) Lymphocytes # (Auto) 0.7 x10^3/uL (1.0-4.8) Monocytes # (Auto) 0.6 x10^3/uL (0.0-1.1) Eosinophils # (Auto) 0.1 x10^3/uL (0.0-0.7) Basophils # (Auto) 0.0 x10^3/uL (0.0-0.2) Prothrombin Time 35.4 SEC (9.4-11.4) 29.0 SEC (9.4-11.4) Prothromb Time International Ratio 3.6 (0.9-1.1) 2.9 (0.9-1.1) Activated Partial Thromboplast Time 42 SEC (23-33) Sodium Level 142 mmol/L (136-145) 140 mmol/L (136-145) Potassium Level 4.1 mmol/L (3.5-5.1) 4.0 mmol/L (3.5-5.1) Chloride Level 103 mmol/L (98-107) 104 mmol/L (98-107) Carbon Dioxide Level 31 mmol/L (21-32) 29 mmol/L (21-32) Anion Gap 8 (6-14) 7 (6-14) Blood Urea Nitrogen 43 mg/dL (7-20) 39 mg/dL (7-20) Creatinine 1.4 mg/dL (0.6-1.0) 1.4 mg/dL (0.6-1.0) Estimated GFR (Cockcroft-Gault) 36.0 36.0 BUN/Creatinine Ratio 31 (6-20) 28 (6-20) Glucose Level 128 mg/dL (70-99) 130 mg/dL (70-99) Calcium Level 9.0 mg/dL (8.5-10.1) 8.8 mg/dL (8.5-10.1) Total Bilirubin 1.1 mg/dL (0.2-1.0) 1.2 mg/dL (0.2-1.0) Aspartate Amino Transf (AST/SGOT) 26 U/L (15-37) 19 U/L (15-37) Alanine Aminotransferase (ALT/SGPT) 33 U/L (14-59) 29 U/L (14-59) Alkaline Phosphatase 70 U/L (46-116) 64 U/L (46-116) Troponin I Quantitative < 0.017 ng/mL (0-0.055) < 0.017 ng/mL (0-0.055) < 0.017 ng/mL (0-0.055) XG-Ary-H-Type Natriuretic Peptide 4128 pg/mL (0-449) Total Protein 8.0 g/dL (6.4-8.2) 7.5 g/dL (6.4-8.2) Albumin 3.7 g/dL (3.4-5.0) 3.3 g/dL (3.4-5.0) Albumin/Globulin Ratio 0.9 (1.0-1.7) 0.8 (1.0-1.7) Images Chest x-ray with diffuse opacities consistent with possible pulmonary edema or viral pneumonia. Also enlarged cardiac size. Assessment/Plan 1. Acute on chronic diastolic heart failure. Patient has improved with Lasix. Continue home medications and diuresis. We will continue monitoring of lab. Echocardiogram as per Covid guidelines with results of Covid testing pending. 2. Chronic atrial fibrillation. Rate controlled. Anticoagulated on the warfarin. 3. Uncertain history of possible coronary disease. Will obtain old records. There is a note regarding a possible catheterization in the last several years with no significant lesions. Continuing medical treatment. 4. History of a CVA. Neurologically intact. 5. Pulmonary hypertension. Continue present treatments. We will attempt to obtain old records. 6. Patient under investigation for cough Covid infection. Thank you for allowing us to participate in the care of your patient. DENISSE MCCOLLUM MD Oct 10, 2020 14:22
[2020-10-10 15:36] VITALS: BP 120/71
[2020-10-10 18:53] VITALS: BP 100/53
[2020-10-10 23:59] VITALS: BP 110/62
[2020-10-11] MEDS: LEVOTHYROXINE 50 MCG TABLET PO SCH (05:30)
[2020-10-11 06:16] LABS: CALCIUM 8.7 mg/dL (8.5-10.1); CREATININE 1.3 mg/dL (0.6-1.0); GFR 39.2; MAGNESIUM 2.5 mg/dL (1.8-2.4); POTASSIUM 4.1 mmol/L (3.5-5.1)
[2020-10-11 06:24] VITALS: BP 133/69
[2020-10-11] MEDS: SILDENAFIL CITRATE 20 MG TABLET. PO SCH ×3 (09:00→21:00)
[2020-10-11] MEDS: amLODIPine BESYLATE 10 MG TABLET PO SCH (09:54)
[2020-10-11] MEDS: FUROSEMIDE 40 MG/4 ML VIAL IVP SCH (09:54)
[2020-10-11] MEDS: CARVEDILOL 6.25 MG TABLET PO SCH ×2 (09:55→17:43)
[2020-10-11] MEDS: CALCIUM CARB/VIT D3 500/200 TABLET PO SCH (09:55)
[2020-10-11 11:16] VITALS: BP 112/52
--- NOTE | 2020-10-11 13:07 | PN ---
DATE: 10/10/2020 SUBJECTIVE: The patient is resting, slightly propped up in bed, in no apparent respiratory distress. She is awake, alert, feeling generally much improved. She is sleeping very well and her legs are much less swollen. PHYSICAL EXAMINATION: GENERAL: When I examined her this afternoon, she looked well and was clearly in no apparent respiratory distress. No pallor, jaundice, cyanosis or thyromegaly. No jugular venous distention. No limb edema. VITAL SIGNS: Her heart rate was 65, blood pressure was ____, temperature was 97.2, respiratory rate was 24 and oxygen saturation was 94% on 3 liters of oxygen. HEAD, EYES, EARS, NOSE AND THROAT: Showed normocephalic, atraumatic. NECK: Supple. CARDIAC: Normal first and second heart sounds. No gallop, rub or murmur. CHEST: Shows central trachea, equal bilateral expansion, air entry, vesicular sounds with bilateral basal crepitation. I could not appreciate any rhonchi. ABDOMEN: Distended, soft, nontender. NEUROLOGIC: She was awake, alert, responding appropriately. All cranial nerves intact. She has continued to have mild residual right-sided hemiparesis. Her intake over the last 24 hours incompletely recorded as well as output. LABORATORY DATA: Her lab work this morning showed a white cell count 5300, hemoglobin 11, hematocrit 35, MCV 87 and platelet count of 199,000. Her serum sodium was 140, potassium 4, chloride 104, bicarbonate 29, anion gap of 7, BUN 39, creatinine 1.4, estimated GFR was 36 mL per minute. Her glucose 130. Calcium was 8.8. Total bilirubin 1.2. AST, ALT and alkaline phosphatase were normal. Total protein was 7.5, albumin was 3.3. Her prothrombin time was 29. INR of 2.9. ASSESSMENT: Acute on chronic diastolic congestive heart failure. Her most recent echocardiogram done on 01/18/2017 showed ejection fraction of 55%. The patient has also markedly dilated left atrium, mild to moderate calcific aortic stenosis. Aortic valve area at that time was 1.4 square cm. OTHER MEDICAL PROBLEMS: Include: A. Hypertension. B. Atrial fibrillation. C. Hyperlipidemia. D. Possible deep vein thrombosis and pulmonary embolism. PLAN: To continue with all her medications. I did discontinue her torsemide and start her on IV Lasix. I did consult the cardiology team. We will continue with IV Lasix on a daily basis. I will also order PT, OT and decide the further management accordingly. ROSALINO DISLA MD DR: JIM/anitha JOB#: [id number] / [id number]
--- NOTE | 2020-10-11 14:45 | RAD ---
CHEST AP ONLY Clinical History: Reason: INCREASED SOB / Spl. Instructions: COVID + / History: Technique: AP view of the chest was obtained at 10/11/2020 11:19 AM. Comparison: October 09, 2020. Findings: There is moderate cardiomegaly. The pulmonary vessels appear somewhat full and congested and there is increased reticular opacities and there is patchy perihilar opacities and hazy opacity in the costophrenic angles.. Impression: Moderate cardiomegaly, mild pleural effusions and bilateral infiltrates could be CHF or atypical pneumonia and appears mildly worse. Electronically signed by: Rajesh Oakes III, MD (10/11/2020 2:42 PM) [facility]
[2020-10-11] MEDS ORDERED: FUROSEMIDE 40 MG/4 ML VIAL IVP ONE (15:00)
[2020-10-11 15:33] VITALS: BP 106/65
--- NOTE | 2020-10-11 16:55 | NUR ---
Pharmacy Warfarin Dosing Note S:Pharmacy consulted to assist with anticoagulation therapy started with target INR: 2 -3 O:THUY CARMICHAEL is a 80 year old F with Atrial Fibrillation LABS: Last INR: 2 Last HGB: 11.1 Last HCT: 35.3 Last PLT: 199 Last dose of DID NOT RECEIVE DOSE 10/10 given on at Previous Regimen: HOME DOSE 4MG DAILY Vitamin K given: Drug Interaction Changes: Same Interacting Drug Ongoing Drug Interactions: A:INR Within desired Range. Target Range for this patient is: 2 -3 P: Warfarin dose: 4 mg Today at 1600 Bridge Therapy: None Next INR due 10/12/20 @ 0600 Pharmacy anticoagulation service will continue to follow. [facility], 10/11/20 [id number]
[2020-10-11] MEDS: WARFARIN 4 MG TABLET. PO SCH (17:43)
[2020-10-11 19:10] VITALS: BP 105/61
--- NOTE | 2020-10-11 21:40 | PN ---
DATE: SUBJECTIVE: The patient is resting, slightly propped up in bed, in no apparent distress. She managed to sit in a chair for almost 3 hours a day, however, she continued to have severe shortness of breath with any exertion even when she attempts to get into the bed and lifting her feet and becomes very short of breath. Denied any chest pain. Denied any cough, phlegm or hemoptysis. Denied any chills, rigors or fever. PHYSICAL EXAMINATION: GENERAL: When I examined her this afternoon, she looked somewhat pale. No jaundice, cyanosis or thyromegaly. No jugular venous distention. No limb edema. VITAL SIGNS: Her heart rate was 72, blood pressure was 112/52, temperature was 96.5, respiratory rate was 20 and oxygen saturation was 93% on 3 liters of oxygen. HEAD, EYES, EARS, NOSE AND THROAT: Showed normocephalic, atraumatic. NECK: Supple. HEART: Showed normal first and second heart sounds. No gallop, rub or murmur. CHEST: Showed central trachea, equal bilateral expansion, air entry. She has bilateral basal crepitation, more so on the left than right. ABDOMEN: Distended, soft, nontender. NEUROLOGIC: She was awake, alert, responding appropriately. All cranial nerves intact. She does have mild residual right-sided hemiparesis. Her intake over the last 24 hours and output were incompletely recorded. LABORATORY DATA: Her lab work this morning showed a serum sodium 140, potassium 4.1, chloride 103, bicarbonate 31, anion gap of 6, BUN 37, creatinine 1.3, estimated GFR was 39 mL per minute. Her glucose 104, calcium was 8.7, magnesium was 2.5. Had a repeat chest x-ray, which showed that the patient has moderate cardiomegaly. The pulmonary vessels appear somewhat full and congested and there is increased reticular opacities. There is patchy perihilar opacities and hazy opacity in the costophrenic angles with the impression is that moderate cardiomegaly, mild pleural effusion and bilateral infiltrate, could be congestive heart failure or atypical pneumonia and appears mildly worse. Her coronavirus by PCR was detectable. Her prothrombin time was 19.9, INR of 2. ASSESSMENT: 1. The patient probably has COVID-19 pneumonia. 2. Acute on chronic diastolic congestive heart failure. 3. The patient has [id number]-[id number] aortic stenosis with aortic valve area at that time about 4 years ago was 1.4 square cm. 4. The patient has other medical problems including: A. Hypertension. B. Atrial fibrillation. C. Hyperlipidemia. D. Possible deep vein thrombosis and pulmonary embolism. PLAN: I have given her an extra dose of Lasix today. I will start her on dexamethasone and I resumed her Coumadin given that her INR is trending down is only 2 today. I will repeat all her lab works tomorrow. ROSALINO DISLA MD DR: JIM/anitha JOB#: [id number] / [id number]
[2020-10-11 23:00] VITALS: BP 111/57
[2020-10-12] VITALS (14 sets, daily range): BP systolic 96–135; BP diastolic 45–81
[2020-10-12] MEDS ORDERED: FUROSEMIDE 40 MG TABLET PO ONE (04:30)
[2020-10-12 04:45] LABS: BGAS PH 7.21 (7.35-7.45)
[2020-10-12 04:57] LABS: BASO # 0.1 x10^3/uL (0.0-0.2); BASO % 1 % (0-3); EOS # 0.1 x10^3/uL (0.0-0.7); EOS % 2 % (0-3); HEMATOCRIT 35.8 % (36.0-47.0); HEMOGLOBIN 11.2 g/dL (12.0-15.5); LYMPH # 1.1 x10^3/uL (1.0-4.8); LYMPH % 14 % (24-48); MEAN CORPUSCULAR HEMOGLOBIN 27 pg (25-35); MEAN CORPUSCULAR HGB CONC 31 g/dL (31-37); MEAN CORPUSCULAR VOLUME 87 fL (79-100); MONO # 0.9 x10^3/uL (0.0-1.1); MONO % 11 % (0-9); NEUT # 5.6 x10^3uL (1.8-7.7); NEUT % 72 % (31-73); PLATELET COUNT 202 x10^3/uL (140-400); RED CELL DISTRIBUTION WIDTH 15.3 % (11.5-14.5); WHITE BLOOD COUNT 7.7 x10^3/uL (4.0-11.0)
--- NOTE | 2020-10-12 05:00 | RAD ---
CHEST AP ONLY History: Reason: increase in work of breathing / Spl. Instructions: / History: Comparison: October 11, 2020 Findings: Increased diffuse interstitial and alveolar opacities. Cardiomegaly, unchanged. Small bilateral pleural effusions. Advanced glenohumeral DJD with remodeling of the humeral heads. No pneumothorax. Impression: 1. Increased diffuse interstitial and alveolar opacities. 2. Small bilateral pleural effusions. Electronically signed by: Bret Judd DO (10/12/2020 4:57 AM) [facility]
[2020-10-12 05:26] LABS: ALBUMIN 3.3 g/dL (3.4-5.0); ALBUMIN/GLOBULIN RATIO 0.7 (1.0-1.7); CALCIUM 8.8 mg/dL (8.5-10.1); CREATININE 1.4 mg/dL (0.6-1.0); POTASSIUM 4.5 mmol/L (3.5-5.1); TOTAL BILIRUBIN 1.5 mg/dL (0.2-1.0); TOTAL PROTEIN 7.8 g/dL (6.4-8.2)
--- NOTE | 2020-10-12 08:53 | NUR ---
This RN was received in shift report per Willy GIORDANO short story writer that the patient was transferred over to ICU 3 around 0530 this morning due to acute respiratory failure. Patient is currently on BIPAP with settings of 22/6, rate of 16, FI02 50%, SPO2 is 95%. Nola RT attempted to obtain a repeat blood gas this am but was unable to access an artery for the sample. Patient is in AFIB and having occasional pauses which are approximately 2.0 seconds long. Berenice SELF was notified of patients condition as cardiology is on case. After reviewing patients labs and current condition, Berenice ordered IV lasix to be given and questioned whether the patient should be transferred to [place] for advanced care. This RN will call Dr Massey to give an update on patients condition and follow any orders given/received.
[2020-10-12] MEDS ORDERED: DEXAMETHASONE SOD PHOS 10 MG/ML VIAL. IV SCH (09:00)
[2020-10-12] MEDS ORDERED: REMDESIVIR LOAD in IV NORMAL SALINE 250ML TV IV ONE (09:00)
[2020-10-12] MEDS: FUROSEMIDE 40 MG/4 ML VIAL IVP ONE (09:15)
[2020-10-12] MEDS: FUROSEMIDE 40 MG/4 ML VIAL IVP SCH (09:34)
[2020-10-12 12:03] LABS: BGAS PH 7.36 (7.35-7.45)
[2020-10-12] MEDS: CALCIUM CARB/VIT D3 500/200 TABLET PO SCH (12:36)
[2020-10-12] MEDS: LEVOTHYROXINE 50 MCG TABLET PO SCH (12:36)
[2020-10-12] MEDS ORDERED: FUROSEMIDE 40 MG/4 ML VIAL IVP ONE (16:30)
[2020-10-12] MEDS: WARFARIN 4 MG TABLET. PO SCH (18:27)
--- NOTE | 2020-10-12 19:31 | PDOC ---
PROGRESS NOTES Date of Service DOS: DATE: 10/12/20 TIME: 19:31 Diagnosis Problem Problems Medical Problems: (1) Atrial fibrillation Status: Acute (2) DNR (do not resuscitate) Status: Acute (3) History of congestive heart failure Status: Acute (4) History of pulmonary hypertension Status: Acute (5) Person under investigation for COVID-19 Status: Acute (6) Pulmonary edema Status: Acute (7) Warfarin anticoagulation Status: Acute Assessment 1. Acute respiratory failure secondary to combination of Covid PNA and acute on chr diastolic HF. Continue diuresis with Lasix - will give additional dose this afternoon. 2D echo in 2017 showed normal LVEF with mild to mod aortic stenosis and severe pulmonary HTN. Troponin levels normal. We will consider 2D echo and ischemic evaluation once she recovers from Covid. Treat Covid PNA per IM - considering possible transfer to [facility]. 2. Permanent atrial fibrillation: rate well controlled. Continue warfarin for stroke prophylaxis, 3. HTN: controlled 4. CKD Subjective Patient had flash pulm edema earlier today and became hypoxic, improved after she received IV lasix. Denied any chest pain Objective Vital Signs Date Time Temp Pulse Resp B/P (MAP) Pulse Ox O2 Delivery O2 Flow Rate FiO2 10/12/20 18:37 78 27 123/53 (76) 98 Nasal Cannula 6.0 10/12/20 15:16 98.4 Intake and Output 10/12/20 07:00 Intake Total 1150 ml Balance 1150 ml Intake Oral 1150 ml # Voids 3 Visual exam secondary to Covid precautions General: propped up in bed, comfortable, off BiPAP Per IM: Lungs: светлана basal crepts Heart: HR irregular Abd: benign Ext: 1-2+ edema General: Other Labs Laboratory Tests Test 10/12/20 04:28 10/12/20 04:30 10/12/20 11:50 Blood pH 7.21 (7.35-7.45) L 7.36 (7.35-7.45) Blood Gas PCO2 87 mmHg (35-45) *H 65 mmHg (35-45) *H Blood Gas PO2 43 mmHg (71-100) *L 124 mmHg (71-100) H Blood Gas HCO3 34 mmol/L (22-26) H 37 mmol/L (22-26) H Arterial Bld O2 Saturation (Calc) 65 % (92-99) L 99 % (92-99) FiO2 50 % 50 % White Blood Count 7.7 x10^3/uL (4.0-11.0) Red Blood Count 4.10 x10^6/uL (3.50-5.40) Hemoglobin 11.2 g/dL (12.0-15.5) L Hematocrit 35.8 % (36.0-47.0) L Mean Corpuscular Volume 87 fL (79-100) Mean Corpuscular Hemoglobin 27 pg (25-35) Mean Corpuscular Hemoglobin Concent 31 g/dL (31-37) Red Cell Distribution Width 15.3 % (11.5-14.5) H Platelet Count 202 x10^3/uL (140-400) Neutrophils (%) (Auto) 72 % (31-73) Lymphocytes (%) (Auto) 14 % (24-48) L Monocytes (%) (Auto) 11 % (0-9) H Eosinophils (%) (Auto) 2 % (0-3) Basophils (%) (Auto) 1 % (0-3) Neutrophils # (Auto) 5.6 x10^3uL (1.8-7.7) Lymphocytes # (Auto) 1.1 x10^3/uL (1.0-4.8) Monocytes # (Auto) 0.9 x10^3/uL (0.0-1.1) Eosinophils # (Auto) 0.1 x10^3/uL (0.0-0.7) Basophils # (Auto) 0.1 x10^3/uL (0.0-0.2) Prothrombin Time 18.0 SEC (9.4-11.4) H Prothrombin Time INR 1.8 (0.9-1.1) H Sodium Level 139 mmol/L (136-145) Potassium Level 4.5 mmol/L (3.5-5.1) Chloride Level 102 mmol/L (98-107) Carbon Dioxide Level 33 mmol/L (21-32) H Anion Gap 4 (6-14) L Blood Urea Nitrogen 38 mg/dL (7-20) H Creatinine 1.4 mg/dL (0.6-1.0) H Estimated GFR (Cockcroft-Gault) 36.0 BUN/Creatinine Ratio 27 (6-20) H Glucose Level 178 mg/dL (70-99) H Calcium Level 8.8 mg/dL (8.5-10.1) Total Bilirubin 1.5 mg/dL (0.2-1.0) H Aspartate Amino Transferase (AST) 31 U/L (15-37) Alanine Aminotransferase (ALT) 44 U/L (14-59) Alkaline Phosphatase 69 U/L (46-116) Troponin I Quantitative < 0.017 ng/mL (0-0.055) EX-Bfk-F-Type Natriuretic Peptide 4899 pg/mL (0-449) H Total Protein 7.8 g/dL (6.4-8.2) Albumin 3.3 g/dL (3.4-5.0) L Albumin/Globulin Ratio 0.7 (1.0-1.7) L Thyroid Stimulating Hormone (TSH) 1.304 uIU/mL (0.358-3.740) Medications Current Medications Medications (Trade) Dose Ordered Sig/Keyanna Route PRN Reason Start Time Stop Time Status Last Admin Dose Admin Furosemide (Lasix) 40 mg 1X ONCE PO 10/12/20 04:30 10/12/20 04:31 DC 10/12/20 04:13 Remdesivir 200 mg/ Sodium Chloride 210 ml @ 210 mls/hr 1X ONCE IV 10/12/20 09:00 10/12/20 09:59 DC 10/12/20 12:36 Furosemide (Lasix) 40 mg 1X ONCE IVP 10/12/20 16:30 10/12/20 16:34 DC 10/12/20 18:28 Vitals/I & O Vital Signs Date Time Temp Pulse Resp B/P (MAP) Pulse Ox O2 Delivery O2 Flow Rate FiO2 10/12/20 18:37 78 27 123/53 (76) 98 Nasal Cannula 6.0 10/12/20 15:16 98.4 I & O 10/11/20 10/11/20 10/12/20 15:00 23:00 07:00 Intake Total 600 ml 550 ml 0 ml Balance 600 ml 550 ml 0 ml Justification of Admission: Justification of Admission: Justification of Admission Dx: Yes Respiratory Failure: Severe Resp Distress MARGARET WOODARD MD Oct 12, 2020 19:31
--- NOTE | 2020-10-12 20:45 | NUR ---
Assumed care of patient at 1900. Patient resting comfortably on 6L NC at that time. Patient expressed clear wish to rescind her DNR, states "I still have things to do." Order received from Dr Massey to change code status to full code. Patient asked to be placed back on BiPap at 2029, also stated pressures were "too high." Settings changed to 16/4, rate 16, Fio2 40%. Patient tolerating BiPap well on these settings. Will continue to monitor.
--- NOTE | 2020-10-12 21:23 | PN ---
DATE: 10/12/2020 SUBJECTIVE: The patient apparently went into flash pulmonary edema this morning during which she became extremely hypoxic, desaturated down to 70%. Blood gases done at that time showed a pH of 7.21, pCO2 went up to 87, pO2 of 43 and bicarbonate was 34, and oxygen saturation was 65%, on FiO2 of 50%. LABORATORY DATA: Her white cell count was 7700, hemoglobin 11, hematocrit 35, MCV 87 and platelet count of 202,000. Her chemistry showed a serum sodium 139, potassium 4.5, chloride 102, bicarbonate 33, anion gap of 4, BUN 38, creatinine 1.4, estimated GFR was 36 mL per minute and glucose 178, calcium was 8.8. Total bilirubin 1.5. AST, ALT, alkaline phosphatase were normal. Her troponin was less than 0.017 and her beta natriuretic peptide was 4899. The patient was transferred to the ICU, was started on BiPAP machine and subsequently did very well. PHYSICAL EXAMINATION: GENERAL: When I saw her this afternoon, she was resting slightly propped up in bed, in no apparent distress, pale. No jaundice, cyanosis or thyromegaly. No jugular venous distention. No limb edema. VITAL SIGNS: Her heart rate was 73, blood pressure was 135/81, temperature was 98.4, respiratory rate was 23, and oxygen saturation was 98% on 6 liters of oxygen by nasal cannula. HEENT: Normocephalic, atraumatic. NECK: Supple. HEART: Showed normal first and second heart sounds. No gallop or murmur. CHEST: Showed central trachea, equal bilateral expansion, air entry, vesicular sounds with bilateral basal crepitation. I could not appreciate any rhonchi. ABDOMEN: Distended, soft, nontender. NEUROLOGIC: She was awake. She is alert, oriented to time, place and person. All cranial nerves are intact. She moves extremities without difficulty. She does have some residual right-sided hemiparesis, which she diuresed. The patient was treated with Lasix 40 mg and she so far diuresed about 1750 mL. ASSESSMENT: 1. The patient has COVID-19 pneumonia. 2. Cqpjm-[id number] diastolic congestive heart failure with flash pulmonary edema this morning. 3. Acute hypercapnic respiratory failure for which she was started on BiPAP machine. Repeat blood gases showed her pH has improved to 7.36. Her pCO2 is down to 65 and pO2 went up to 124, bicarbonate 37 and oxygen saturation was 99% on FiO2 of 50%. The patient has brfv-[id number] aortic stenosis with the aortic valve area just about in 2017 of 1.4 square cm. 4. The patient has multiple other medical problems including hypertension, atrial fibrillation, and hyperlipidemia with the possibility of deep vein thrombosis and pulmonary embolism. The patient was started on dexamethasone, remdesivir, as well as convalescent plasma. I increased her Coumadin to 5 mg. I spoke with Dr. Viera and given there are no beds available at [facility], her family requested transfer here. We are planning to transfer her to [facility] as soon as a bed becomes available. ROSALINO DISLA MD DR: JIM/anitha JOB#: [id number] / [id number]
[2020-10-13] VITALS (10 sets, daily range): BP systolic 114–136; BP diastolic 54–75
[2020-10-13] MEDS: LEVOTHYROXINE 50 MCG TABLET PO SCH (06:29)
--- NOTE | 2020-10-13 07:45 | PDOC ---
ARMANDO HANSON QUALITY ASSURANCE SUPERVISOR 10/13/20 0745: CARDIO Progress Notes Date & Time Date of Service DATE: 10/13/20 TIME: 07:42 Time of Evaluation 07:42 Subjective Notes breathing improved Vitals Vitals Vital Signs Date Time Temp Pulse Resp B/P (MAP) Pulse Ox O2 Delivery O2 Flow Rate FiO2 10/13/20 06:00 59 20 133/64 (87) 96 BiPAP/CPAP 10/12/20 20:15 6.0 10/12/20 20:00 98.3 Weight Weight [ ] Input and Output I.O. Intake and Output 10/13/20 07:00 Intake Total 730 ml Output Total 3650 ml Balance -2920 ml Intake Oral 730 ml Output Urine Total 3650 ml Laboratory Labs Laboratory Tests Test 10/11/20 08:10 10/12/20 04:28 10/12/20 04:30 10/12/20 11:50 Prothrombin Time 19.9 SEC (9.4-11.4) 18.0 SEC (9.4-11.4) Prothromb Time International Ratio 2.0 (0.9-1.1) 1.8 (0.9-1.1) Blood Gas pH 7.21 (7.35-7.45) 7.36 (7.35-7.45) Blood Gas PCO2 87 mmHg (35-45) 65 mmHg (35-45) Blood Gas PO2 43 mmHg (71-100) 124 mmHg (71-100) Blood Gas HCO3 34 mmol/L (22-26) 37 mmol/L (22-26) Arterial Bld O2 Saturation (Calc) 65 % (92-99) 99 % (92-99) FiO2 50 % 50 % White Blood Count 7.7 x10^3/uL (4.0-11.0) Red Blood Count 4.10 x10^6/uL (3.50-5.40) Hemoglobin 11.2 g/dL (12.0-15.5) Hematocrit 35.8 % (36.0-47.0) Mean Corpuscular Volume 87 fL (79-100) Mean Corpuscular Hemoglobin 27 pg (25-35) Mean Corpuscular Hemoglobin Concent 31 g/dL (31-37) Red Cell Distribution Width 15.3 % (11.5-14.5) Platelet Count 202 x10^3/uL (140-400) Neutrophils (%) (Auto) 72 % (31-73) Lymphocytes (%) (Auto) 14 % (24-48) Monocytes (%) (Auto) 11 % (0-9) Eosinophils (%) (Auto) 2 % (0-3) Basophils (%) (Auto) 1 % (0-3) Neutrophils # (Auto) 5.6 x10^3uL (1.8-7.7) Lymphocytes # (Auto) 1.1 x10^3/uL (1.0-4.8) Monocytes # (Auto) 0.9 x10^3/uL (0.0-1.1) Eosinophils # (Auto) 0.1 x10^3/uL (0.0-0.7) Basophils # (Auto) 0.1 x10^3/uL (0.0-0.2) Sodium Level 139 mmol/L (136-145) Potassium Level 4.5 mmol/L (3.5-5.1) Chloride Level 102 mmol/L (98-107) Carbon Dioxide Level 33 mmol/L (21-32) Anion Gap 4 (6-14) Blood Urea Nitrogen 38 mg/dL (7-20) Creatinine 1.4 mg/dL (0.6-1.0) Estimated GFR (Cockcroft-Gault) 36.0 BUN/Creatinine Ratio 27 (6-20) Glucose Level 178 mg/dL (70-99) Calcium Level 8.8 mg/dL (8.5-10.1) Total Bilirubin 1.5 mg/dL (0.2-1.0) Aspartate Amino Transf (AST/SGOT) 31 U/L (15-37) Alanine Aminotransferase (ALT/SGPT) 44 U/L (14-59) Alkaline Phosphatase 69 U/L (46-116) Troponin I Quantitative < 0.017 ng/mL (0-0.055) JB-Eel-Y-Type Natriuretic Peptide 4899 pg/mL (0-449) Total Protein 7.8 g/dL (6.4-8.2) Albumin 3.3 g/dL (3.4-5.0) Albumin/Globulin Ratio 0.7 (1.0-1.7) Thyroid Stimulating Hormone (TSH) 1.304 uIU/mL (0.358-3.740) Physical Exams Chest: Symmetric Lungs: Other (on NC) Heart: RRR Abdomen: Soft N/T Extremities: Other (1+ bilateral LE edema ) Neurology: alert, oriented, follow commands Assessment Assessment 1. Acute respiratory failure secondary to combination of Covid PNA and acute on chronic diastolic HF. Echo in 07/2019 with preserved LV systolic function al LVEF with mild to mod aortic stenosis and severe pulmonary HTN. Troponin levels normal. Improved with IV diuresis 2. Permanent atrial fibrillation: rate well controlled without therapy. Follows with Dr. Aylin WEINSTEIN 3. HTN: controlled 4. CKD Recommendations Mild diuresis Continue warfarin for stroke prophylaxis Outpatient echo when recovered from COVID Consider outpatient ischemic evaluation; will defer to primary sagger preparer Ongoing lung optimization, treatment of COVID PNA MARGARET WOODARD MD 10/13/20 8735: CARDIO Progress Notes Assessment Assessment Agree with WATER TREATMENT SPECIALIST's assessment and plan. Acute on chronic diastolic heart failure better compensated. Permanent atrial fibrillation rate controlled. Continue warfarin for stroke prophylaxis. Patient currently being transferred to [facility] for further management of Covid pneumonia. Will consider 2D echo and possibly ischemic evaluation once she recovers. ARMANDO HANSON APRN Oct 13, 2020 07:45 MARGARET WOODARD MD Oct 13, 2020 16:29
[2020-10-13] MEDS ORDERED: REMDESIVIR 100mg in NORMAL SALINE 250ML X 4 DAYS IV SCH (09:00)
[2020-10-13] MEDS ORDERED: DEXAMETHASONE SOD PHOS 4 MG/ML VIAL. IVP SCH (09:00)
[2020-10-13] MEDS: CALCIUM CARB/VIT D3 500/200 TABLET PO SCH (09:00)
[2020-10-13] MEDS: FUROSEMIDE 40 MG/4 ML VIAL IVP SCH (10:34)
[2020-10-13 11:25] LABS: CALCIUM 8.9 mg/dL (8.5-10.1); CREATININE 1.4 mg/dL (0.6-1.0); MAGNESIUM 2.3 mg/dL (1.8-2.4); POTASSIUM 3.7 mmol/L (3.5-5.1)
--- NOTE | 2020-10-13 13:48 | NUR ---
Pharmacy Warfarin Dosing Note S:Pharmacy consulted to assist with anticoagulation therapy started with target INR: 2 -3 O:THUY CARMICHAEL is a 80 year old F with Atrial Fibrillation LABS: Last INR: 1.7 Last HGB: 11.2 Last HCT: 35.8 Last PLT: 202 Last dose of 4 mg given on 10/12/20 at 1600 Previous Regimen: HOME DOSE 4MG DAILY Vitamin K given: Drug Interaction Changes: Same Interacting Drug Ongoing Drug Interactions: A:INR Below desired Range. Target Range for this patient is: 2 -3 P: Warfarin dose: increase dose to 5 mg Today at 1600 Bridge Therapy: None Next INR due 10/14 Pharmacy anticoagulation service will continue to follow. KETURAH SALINAS, 10/13/20 [id number]
[2020-10-13] MEDS ORDERED: WARFARIN 5 MG TABLET. PO ONE (16:00)
--- NOTE | 2020-10-13 16:00 | NUR ---
Patient was being transferred to [facility] room [address] Massey's request for higher level of care. Patient was transferred to [facility] via EMS. Patient was alert and oriented and on 4L NC with O2 saturations in the upper 90's. EMS transported patients personal belongings which included her walker, a cell phone and a cell phone shirt marker. Patient was wearing her glasses when she left the unit. Discharge paperwork was sent with EMS transport personal.
--- NOTE | 2020-10-13 21:34 | DS ---
DATE OF DISCHARGE: 10/13/2020 HOSPITAL COURSE: The patient is an 80-year-old female patient who was admitted on 10/09/2020 through the Emergency Room of [facility] with worsening shortness of breath, weight gain and bilateral lower extremity edema. She was diagnosed with [id number] diastolic congestive heart failure. She was also ____ under investigation at that time. She was treated with IV Lasix and did initially very well. Subsequently her coronavirus PCR became detectable and yesterday morning, she went into severe respiratory distress. At that time, she became very hypoxic with oxygen saturation down to 70%. Her blood gases at that time showed a pH of 7.21, her pCO2 of 87, pO2 of 43, bicarbonate 34 and oxygen saturation was 65% on FiO2 of 50%. The patient was treated with IV Lasix and was started on BiPAP machine and was transferred to the ICU and continued treated aggressively with diuretics and she did very well. In fact, today, she was most of the day on 5 liters of oxygen by nasal cannula. She was seen in consultation by the Cardiology team and they recommended to continue with diuresing her and adjust Coumadin to maintain INR within therapeutic range. She was also continued on dexamethasone, remdesivir and received convalescent plasma and her family requested transferring her to [facility]; however, they refused to take her and therefore, she was transferred to [facility] for further evaluation and treatment. PHYSICAL EXAMINATION: GENERAL: When I examined her this afternoon, she was resting slightly propped up in bed, in no apparent respiratory distress. She was somewhat pale, but no jaundice, cyanosis or thyromegaly. No jugular venous distention or limb edema. VITAL SIGNS: Her heart rate was 84, blood pressure was 118/68, temperature 97.3, respiratory rate was 22 and oxygen saturation was 96% on 5 liters of oxygen. HEAD, EYES, EARS, NOSE AND THROAT: Showed normocephalic, atraumatic. NECK: Supple. CARDIAC: Normal first and second heart sounds. No gallop or murmur. CHEST: Shows central trachea, equal bilateral expansion, air entry expands with crepitation posteriorly bilaterally. No rhonchi. ABDOMEN: Slightly distended, soft, nontender. NEUROLOGIC: She is awake, alert. She does have mild residual right-sided hemiparesis. Her intake over the last 24 hours was 1150, output was 3650. LABORATORY DATA: As of this morning, her prothrombin time was 17.4, INR 1.7. Her white cell count was 7700, hemoglobin 11, hematocrit 35, MCV 87 and platelet count of 202,000. Her chemistry this morning showed a serum sodium 143, potassium 3.7, chloride 101, bicarbonate 36, anion gap of 6, BUN 36, creatinine 1.4, estimated GFR was 56 mL per minute. Her glucose was 115, calcium was 8.9, magnesium was 2.3. DISCHARGE MEDICATIONS: The patient was transferred to [facility] to continue on Coumadin 5 mg daily, dexamethasone 6 mg daily, remdesivir once ____ daily, furosemide 40 mg IV daily, calcium with vitamin D one tablet once a day, levothyroxine 50 mcg once a day, tramadol 50 mg every 6 hours, dicyclomine 20 mg daily. FINAL DISCHARGE DIAGNOSES: 1. Acute COVID-19 pneumonia. 2. Acute hypoxic hypercapnic respiratory failure. 3. Acute on chronic diastolic congestive heart failure and flash pulmonary edema. 4. The patient has multiple other medical problems including: A. Hypertension. B. Chronic atrial fibrillation. C. Hyperlipidemia. D. Possible deep vein thrombosis and pulmonary embolism. ROSALINO DISLA MD DR: JIM/anitha JOB#: [id number] / [id number]
== END 2020-10-13 15:50 | disposition short-term general hospital (02) | DRG 177 ==
LOC: ER 06:32 → 1 SOUTH 08:54 → ICU 10-12 05:05
PROVIDERS: ADMIT Internal Medicine; ATTEND Internal Medicine
PROC: 5A09357 Assistance with Respiratory Ventilation, Less than 24 Consecutive Hours, Continuous Positive Airway Pressure (ICD-10-PCS; 2020-10-12)
PROC: XW13325 Transfusion of Convalescent Plasma (Nonautologous) into Peripheral Vein, Percutaneous Approach, New Technology Group 5 (ICD-10-PCS; principal; 2020-10-13)
PROC: XW033E5 Introduction of Remdesivir Anti-infective into Peripheral Vein, Percutaneous Approach, New Technology Group 5 (ICD-10-PCS; 2020-10-13)
PROC: 5A09357 Assistance with Respiratory Ventilation, Less than 24 Consecutive Hours, Continuous Positive Airway Pressure (ICD-10-PCS; 2020-10-13)
DX: U07.1 COVID-19 (principal); J12.89 Other viral pneumonia; I50.33 Acute on chronic diastolic (congestive) heart failure; J96.01 Acute respiratory failure with hypoxia; J96.02 Acute respiratory failure with hypercapnia; I48.21 Permanent atrial fibrillation; I13.0 Hypertensive heart and chronic kidney disease with heart failure and stage 1 through stage 4 chronic kidney disease, or unspecified chronic kidney disease; I25.10 Atherosclerotic heart disease of native coronary artery without angina pectoris; Z96.659 Presence of unspecified artificial knee joint; I27.20 Pulmonary hypertension, unspecified; Z66 Do not resuscitate; Z96.649 Presence of unspecified artificial hip joint; E78.5 Hyperlipidemia, unspecified; I07.1 Rheumatic tricuspid insufficiency; M19.90 Unspecified osteoarthritis, unspecified site; N18.9 Chronic kidney disease, unspecified; I35.0 Nonrheumatic aortic (valve) stenosis; J40 Bronchitis, not specified as acute or chronic; Z86.73 Personal history of transient ischemic attack (TIA), and cerebral infarction without residual deficits; I25.2 Old myocardial infarction; Z88.0 Allergy status to penicillin; Z88.2 Allergy status to sulfonamides; Z88.8 Allergy status to other drugs, medicaments and biological substances; Z90.710 Acquired absence of both cervix and uterus; Z82.49 Family history of ischemic heart disease and other diseases of the circulatory system
CPT/HCPCS: 36415; 36600; 71045; 80048; 80053; 80061; 82803; 83735; 83880; 84443; 84484; 85025; 85027; 85610; 85730; 86850; 86900; 86901; 86927; 93005; 94660; 96374; J1100; J1940; J7050; U0003; 99285-25; P9017

== ENCOUNTER → 2020-10-27 | Outpatient (CLI) | payer MEDICARE, BC ==
[2020-10-13 11:00] VITALS: BP 121/60
[~2020-10-27] MED LIST changes: +CARV40CP5 PO; +TORS20TA2 PO; +WARF4TAB64 PO
[2020-10-27 17:43] LABS: BILIRUBIN,URINE NEG (NEG); CLARITY,URINE CLOUDY; COLOR,URINE YELLOW; GLUCOSE,URINE NEG (NEG)
[2020-10-27 17:44] LABS: BACTERIA,URINE MANY /HPF (0-FEW); NITRITE,URINE NEG (NEG); RBC,URINE >40 /HPF (0-2); UROBILINOGEN,URINE 0.2 mg/dL (0.2 mg/dL); WBC,URINE TNTC /HPF (0-4)
== END ==
LOC: LAB 17:19
PROVIDERS: ATTEND Family Medicine
DX: N39.0 Urinary tract infection, site not specified (principal)
CPT/HCPCS: 81001; 87086

== ENCOUNTER → 2020-11-05 | Outpatient (CLI) | payer MEDICARE, BC ==
[2020-10-13 11:00] VITALS: BP 121/60
[2020-11-05 11:18] LABS: CALCIUM 8.2 mg/dL (8.5-10.1); CREATININE 1.8 mg/dL (0.6-1.0); GFR 26.9; POTASSIUM 3.9 mmol/L (3.5-5.1)
== END ==
LOC: LAB 09:34
PROVIDERS: ATTEND Family Medicine
DX: I50.33 Acute on chronic diastolic (congestive) heart failure (principal)
CPT/HCPCS: 36415; 80048

== ENCOUNTER → 2020-11-09 | Outpatient (CLI) | payer MEDICARE, BC ==
[2020-10-13 11:00] VITALS: BP 121/60
[2020-11-09 09:41] LABS: CALCIUM 8.3 mg/dL (8.5-10.1); CREATININE 1.4 mg/dL (0.6-1.0); POTASSIUM 4.2 mmol/L (3.5-5.1)
== END ==
LOC: LAB 08:34
PROVIDERS: ATTEND Family Medicine
DX: I50.33 Acute on chronic diastolic (congestive) heart failure (principal)
CPT/HCPCS: 36415; 80048

== ENCOUNTER 2020-11-10 11:38 | Inpatient (IN) | payer MEDICARE, BC ==
[~2020-11-10] VITALS: Ht 160 cm; Wt 84.0 kg
[2020-11-10] MEDS ORDERED: ASPIRIN CHEWABLE 81 MG TABLET. PO ONE (12:30)
--- NOTE | 2020-11-10 12:56 | PHYS DOC ---
Past History Past Medical History: A-Fib, CAD, CHF, CVA, AR, Stroke Past Surgical History: Knee Replacement, Other Additional Past Surgical Histo: left ankle fusion, right hip fracture. Alcohol Use: None Drug Use: None General Adult EDM: Chief Complaint: SHORTNESS OF BREATH HPI: HPI: Patient is a 80-year-old female who presents with chest pressure, shortness of breath, dizziness. States she went to get an echo this morning at her doctor's office and when she was getting in the car to leave, she started experiencing chest pressure, shortness of breath. Patient denies radiation of pain. Patient denies nausea/vomiting/diarrhea. Patient denies recent illness, cough or fever. She has a history of AR and stroke. Patient is also taking Coumadin and had her dose adjusted yesterday. Patient does not require oxygen at home upon arrival to the emergency room was placed on 2 L to keep above 90%. Review of Systems: Review of Systems: Constitutional: Denies fever or chills Eyes: Denies change in visual acuity HENT: Denies nasal congestion or sore throat Respiratory: Denies cough, reports shortness of breath Cardiovascular: Reports chest pressure GI: Denies abdominal pain, nausea, vomiting, bloody stools or diarrhea : Denies dysuria Musculoskeletal: Denies back pain or joint pain Integument: Denies rash Neurologic: Denies headache, focal weakness, reports dizziness Endocrine: Denies polyuria or polydipsia Lymphatic: Denies swollen glands Psychiatric: Denies depression or anxiety Current Medications: Current Meds: Current Medications Medications (Trade) Dose Ordered Sig/Keyanna Start Time Stop Time Status Last Admin Dose Admin Aspirin (Aspirin Chewable) 324 mg 1X ONCE 11/10/20 12:30 11/10/20 12:38 DC Allergies: Allergies: Allergies Coded Allergies Type Severity Reaction Last Updated Verified nitrofurantoin Allergy Intermediate 11/10/20 Yes Penicillins Allergy Mild 11/10/20 Yes Sulfa (Sulfonamide Antibiotics) Allergy Mild 11/10/20 Yes Physical Exam: PE: Constitutional: Well developed, well nourished, no acute distress, non-toxic appearance. [] HENT: Normocephalic, atraumatic, bilateral external ears normal, oropharynx moist, no oral exudates, nose normal. [] Eyes: PERRLA, EOMI, conjunctiva normal, no discharge. [] Neck: Normal range of motion, no tenderness, supple, no stridor. [] Cardiovascular:Heart rate regular rhythm, no murmur [] Lungs & Thorax: Bilateral breath sounds clear to auscultation [] Abdomen: Bowel sounds normal, soft, no tenderness, no masses, no pulsatile masses. [] Skin: Warm, dry, no erythema, no rash. [] Back: No tenderness, no CVA tenderness. [] Extremities: No tenderness, no cyanosis, no clubbing, ROM intact, no edema. [] Neurologic: Alert and oriented X 3, normal motor function, normal sensory function, no focal deficits noted. [] Psychologic: Affect normal, judgement normal, mood normal. [] Current Patient Data: Vital Signs: Vital Signs Date Time Temp Pulse Resp B/P (MAP) Pulse Ox O2 Delivery O2 Flow Rate FiO2 11/10/20 11:45 98.1 72 26 108/57 (74) 86 Room Air EKG: EKG: Heart rate 67 bpm [] Radiology/Procedures: Radiology/Procedures: []EXAM: Chest, single view. HISTORY: Chest pain. COMPARISON: 10/11/2020 FINDINGS: A frontal view of the chest is obtained. There has been slight interval decrease in diffuse right lung infiltrate and increase in left lung infiltrate. There are stable suspected small pleural effusions. There is a stable prominent cardiac silhouette, allowing for changes in patient position. There is incidental chronic deformity of the glenohumeral joints. IMPRESSION: Decreased right and increased left lung diffuse infiltrate. Electronically signed by: Maria E Sapp MD (11/10/2020 12:58 PM) [id number] Heart Score: HEART Score for Chest Pain: HEART Score for Chest Pain Response (Comments) Value History Highly Suspicious 2 ECG Normal 0 Age > 65 2 Risk Factors >3 Risk Factors or Hx CAD 2 Troponin < Normal Limit 0 Total 6 Risk Factors: Risk Factors: DM, Current or recent (<one month) smoker, HTN, HLP, family history of CAD, obesity. Risk Scores: Score 0 - 3: 2.5% MACE over next 6 weeks - Discharge Home Score 4 - 6: 20.3% MACE over next 6 weeks - Admit for Clinical Observation Score 7 - 10: 72.7% MACE over next 6 weeks - Early Invasive Strategies Course & Med Decision Making: Course & Med Decision Making Pertinent Labs and Imaging studies reviewed. (See chart for details) [] Patient is a 80-year-old female who presents with chest pressure, shortness of breath, dizziness. States she went to get an echo this morning at her doctor's office and when she was getting in the car to leave, she started experiencing chest pressure, shortness of breath. Patient denies radiation of pain. Patient denies nausea/vomiting/diarrhea. Patient denies recent illness, cough or fever. She has a history of AR and stroke. Patient does not require oxygen at home upon arrival to the emergency room was placed on 2 L to keep above 90%. 324 of aspirin given. Chest x-ray and D-dimer ordered to rule out PE and/or pneumonia. Cardiac enzymes and labs ordered. Spoke with patient regarding overnight stay in the hospital, patient agreed with that plan. Heart score of 6. Will call hospitalist once all results are back. Chest x-ray shows Decreased right and increased left lung diffuse infiltrate. UA came back with WBC >40, Patient to be admitted to Dr. Massey for R/O Chest Pain. Earline Disclaimer: Earline Disclaimer: This electronic medical record was generated, in whole or in part, using a voice recognition dictation system. Departure Departure: Impression: Primary Impression: Chest pain Qualified Codes: R07.89 - Other chest pain Additional Impression: UTI (urinary tract infection) Qualified Codes: N30.00 - Acute cystitis without hematuria Disposition: ADMITTED INPT THIS HOSP Referrals: DEVANG BATES MD (PCP) GEREMIAS BRASHER APRN Nov 10, 2020 12:56
--- NOTE | 2020-11-10 13:00 | RAD ---
EXAM: Chest, single view. HISTORY: Chest pain. COMPARISON: 10/11/2020 FINDINGS: A frontal view of the chest is obtained. There has been slight interval decrease in diffuse right lung infiltrate and increase in left lung infiltrate. There are stable suspected small pleural effusions. There is a stable prominent cardiac silhouette, allowing for changes in patient position. There is incidental chronic deformity of the glenohumeral joints. IMPRESSION: Decreased right and increased left lung diffuse infiltrate. Electronically signed by: Maria E Sapp MD (11/10/2020 12:58 PM) [id number]
[2020-11-10 13:07] LABS: BASO # 0.1 x10^3/uL (0.0-0.2); BASO % 2 % (0-3); EOS # 0.1 x10^3/uL (0.0-0.7); EOS % 2 % (0-3); HEMOGLOBIN 10.2 g/dL (12.0-15.5); LYMPH # 0.5 x10^3/uL (1.0-4.8); LYMPH % 9 % (24-48); MEAN CORPUSCULAR HEMOGLOBIN 27 pg (25-35); MEAN CORPUSCULAR HGB CONC 33 g/dL (31-37); MEAN CORPUSCULAR VOLUME 83 fL (79-100); MONO # 0.5 x10^3/uL (0.0-1.1); MONO % 9 % (0-9); NEUT # 4.7 x10^3uL (1.8-7.7); NEUT % 79 % (31-73); PLATELET COUNT 390 x10^3/uL (140-400); RED BLOOD COUNT 3.75 x10^6/uL (3.50-5.40); RED CELL DISTRIBUTION WIDTH 15.9 % (11.5-14.5); WHITE BLOOD COUNT 5.9 x10^3/uL (4.0-11.0)
[2020-11-10 13:34] LABS: CALCIUM 8.6 mg/dL (8.5-10.1); CREATININE 1.5 mg/dL (0.6-1.0); GFR 33.2
[2020-11-10 13:48] LABS: ALBUMIN 2.5 g/dL (3.4-5.0); ALBUMIN/GLOBULIN RATIO 0.6 (1.0-1.7); MAGNESIUM 2.2 mg/dL (1.8-2.4); TOTAL BILIRUBIN 0.6 mg/dL (0.2-1.0); TOTAL PROTEIN 6.9 g/dL (6.4-8.2)
[2020-11-10 13:57] LABS: CLARITY,URINE TURBID; COLOR,URINE YELLOW
[2020-11-10 13:58] LABS: BACTERIA,URINE MANY /HPF (0-FEW); BILIRUBIN,URINE NEG (NEG); GLUCOSE,URINE NEG (NEG); NITRITE,URINE POS (NEG); SQUAMOUS EPITHELIAL CELL,UR MOD /LPF; UROBILINOGEN,URINE 0.2 mg/dL (0.2 mg/dL); WBC,URINE >40 /HPF (0-4)
[2020-11-10 13:59] LABS: HYALINE CASTS, URINE OCC /HPF
--- NOTE | 2020-11-10 14:02 | EKG ---
[address] [address] Test Date: 2020-11-10 Test Time: 12:04:00 Pat Name: THUY CARMICHAEL Department: Room: Gender: F Disk [employer] T[employer] Machine Tender: DRAKE : 1940 Requested By: GEREMIAS BRASHER Order Number: [id number] Reading MD: Iain Turner Measurements Intervals [place] Rate: 67 P: NM: QRS: 38 QRSD: 88 T: 10 QT: 402 QTc: 428 Interpretive Statements ATRIAL FIBRILLATION LOW LIMB LEAD VOLTAGE QRS(T) CONTOUR ABNORMALITY CONSISTENT WITH ANTEROSEPTAL INFARCT PROBABLY OLD ABNORMAL ECG Electronically Signed On 11-10-2020 15:04:47 MAINTENANCE CHIEF by Iain Turner
[2020-11-10] MEDS ORDERED: FUROSEMIDE 40 MG/4 ML VIAL IVP ONE (15:30)
[2020-11-10] MEDS ORDERED: CEFEPIME HCL 2 GM VIAL IV ONE (16:22)
[2020-11-10] MEDS ORDERED: IV NORMAL SALINE 100ML 100 ML ONE (16:23)
[2020-11-10] MEDS ORDERED: CEFEPIME HCL 2 GM in IV NORMAL SALINE 100ML 100 ML IV SCH ×2 (16:30→22:00)
[2020-11-10 17:57] VITALS: BP 98/62
[2020-11-10] MEDS ORDERED: traMADol 50 MG TABLET PO PRN (18:00)
[2020-11-10] MEDS ORDERED: DICYCLOMINE HCL 20 MG TABLET PO PRN (18:00)
--- NOTE | 2020-11-10 18:13 | NUR ---
PATIENT IS 80 Y O FEMALE ARRIVED VIA EMS , TRANSFERRED WITH ASSIST X 1 TO BED. PATIENT IS C/O SOA WITH EXERTION, STATED SHE DOES NOT WEAR O2 AT HOME BUT FEELS LIKE SHE NEEDS IT. PATIENT IS A/O X4, DENIED PAIN, DENIED N/V/D. PATIENT IS CURRENTLY IN A BED EATING SUPPER. PATIENT WAS ORIENTED TO ROOM AND HOSPITAL POLICIES, BELONGINGS INVENTORIED. WILL CTM.
--- NOTE | 2020-11-10 18:27 | NUR ---
PATIENT HAS A HX OF COVID , DIAGNOSED BACK IN October.
--- NOTE | 2020-11-10 18:45 | HP ---
ADMIT DATE: 11/10/2020 HISTORY OF PRESENT ILLNESS: The patient is an 80-year-old female patient who came to the Emergency Room with complaint of shortness of breath, chest pressure, and dizziness. She stated she went to get her echocardiogram this morning at Dr. Viera's office; and while she was getting in the car to leave, she started experiencing chest pressure and shortness of breath. She was debating whether she should go home or come here and she made the right decision to come to the Emergency Room, where she was found to be in heart failure and hypoxia. When we discharged her last time from [facility], she went home without oxygen. She was extensively evaluated in the Emergency Room with lab work as well as imaging studies. Her chest x-ray showed that the patient has slight interval decrease in diffuse right lung infiltrate and increase in the left lung infiltrate. There is stable suspected small pleural effusion. There is stable, prominent cardiac silhouette, allowing for changes in patient position. There is incidental chronic deformity of the glenohumeral joint. Her lab work showed that her BNP was high at 8120. First set of cardiac enzyme showed troponin to be less than 0.07. Her prothrombin time and INR are supratherapeutic at 37.5 and 3.8. However, her D-dimer was only 0.42. The patient was admitted with what seemed to be [id number]-[id number] diastolic congestive heart failure. Her urinalysis also showed that she has urinary tract infection. She was treated with IV Lasix. She received 40 mg of Lasix in the Emergency Room as well as cefepime 2 g and was admitted for further evaluation and treatment. PAST MEDICAL HISTORY: Showed the patient has chronic atrial fibrillation, rate controlled, well anticoagulated; hypertension, hyperlipidemia, possible DVT and PE. She underwent cardiac catheterization, reportedly normal coronary arteries a couple of years ago. She is also known to have severe pulmonary hypertension. PAST SURGICAL HISTORY: Significant for hip surgery and hysterectomy as well as left heart catheterization. She was diagnosed with COVID-19 pneumonia and was in fact discharged home on 10/13/2020. FAMILY HISTORY: Significant for hypertension and coronary artery disease. SOCIAL HISTORY: She is and lives alone. Her children keep an eye on her. 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 She does not smoke, drink alcohol, or use any recreational drugs. She usually walks at home with a walker. She apparently has Meals on Wheels. ALLERGIES: She is allergic to PENICILLIN, SULFA ANTIBIOTIC, AND NITROFURANTOIN. MEDICATIONS: She is currently on following medications: She is on dicyclomine 20 mg daily, warfarin sodium 4 mg daily, sildenafil 20 mg 3 times a day, carvedilol phosphate 40 mg extended release once a day, amlodipine besylate 10 mg once a day, tramadol 50 mg every 6 hours, calcium carbonate with vitamin D3 one tablet once a day, torsemide 20 mg daily, and levothyroxine sodium 50 mcg once a day. REVIEW OF SYSTEMS: As per history of present illness. PHYSICAL EXAMINATION: GENERAL: On arrival to the Emergency Room, the patient was pale, not jaundiced or cyanosed. No lymphadenopathy, no thyromegaly. No jugular venous distention, but bilateral lower extremity edema. VITAL SIGNS: Her heart rate was 72, blood pressure was 107/48, her temperature was 98.1, respiratory rate was 19, and oxygen saturation was 94% on 2 liters of oxygen. HEAD, EYES, EARS, NOSE AND THROAT: Showed normocephalic, atraumatic. NECK: Supple. HEART: Showed normal first and second heart sounds. No gallop, rub, or murmur. CHEST: Showed central trachea, equal bilateral expansion, air entry, vesicular sounds with bilateral basal crepitation posteriorly. I could not appreciate any rhonchi. ABDOMEN: Distended, soft, nontender. NEUROLOGIC: She is awake, alert, responding appropriately. All cranial nerves intact. EXTREMITIES: She moves extremities without difficulty. Examination of both lower extremities showed no clubbing or cyanosis, but bilateral lower limb edema. LABORATORY DATA: Her lab work on arrival to the Emergency Room showed a white cell count 5900, hemoglobin 10, hematocrit 31, MCV 83 and platelet count 390,000 with normal manual differential. Her chemistry showed a serum sodium 138, potassium 4, chloride 102, bicarbonate 31, anion gap of 5, BUN 29, creatinine 1.5, estimated GFR was 33 mL per minute. Her glucose 111, calcium was 8.6, magnesium was 2.2. Total bilirubin, AST, ALT, alkaline phosphatase were normal. Her first set of cardiac enzymes showed troponin to be less than 0.017. Beta-natriuretic peptide was 8120. Total protein 6.9, albumin was 2.5. Her prothrombin time was at 7.5, INR 3.8, aPTT was 41, and D-dimer was 0.41. Urinalysis showed the urine to urine was yellow turbid with a pH of 5.5, specific gravity of 1.010, urine was negative for protein, glucose, ketones, trace of blood, positive for nitrite, and leukocyte esterase. There are 3-5 rbc's, more than 40 wbc's, and many bacteria. Her chest x-ray showed that the patient has decreased right and increased left lung diffuse infiltrate. ASSESSMENT AND PLAN: The patient was admitted with [id number] probably diastolic congestive heart failure, chronic atrial fibrillation, rate controlled, Coumadin-induced coagulopathy, hypertension, chronic kidney disease, and urinary tract infection. I will continue with all her medication. I would probably switch her torsemide to IV Lasix and I will consult the cardiology team and do 2 sets of cardiac enzyme and monitor her prothrombin time on a daily basis and adjust Coumadin to maintain INR between 2-2.5. ROSALINO DISLA MD DR: JIM/anitha JOB#: [id number] / [id number]
[2020-11-10 18:49] LABS: CALCIUM 8.4 mg/dL (8.5-10.1); CREATININE 1.5 mg/dL (0.6-1.0); GFR 33.2; POTASSIUM 3.6 mmol/L (3.5-5.1)
[2020-11-10 19:35] VITALS: BP 108/71
[2020-11-10] MEDS: SILDENAFIL CITRATE 20 MG TABLET. PO SCH (20:37)
[2020-11-10] MEDS: LACTOBACILLUS RHAMNOSUS GG 1 CAPSULE. PO SCH (20:49)
[2020-11-10] MEDS ORDERED: METOPROLOL TART IMMED RELEASE 25 MG TABLET. PO SCH (21:00)
[2020-11-11 00:46] VITALS: BP 116/73
[2020-11-11] MEDS: CEFEPIME HCL 2 GM in IV NORMAL SALINE 100ML 100 ML IV SCH ×2 (05:34→17:33)
[2020-11-11] MEDS: LEVOTHYROXINE 50 MCG TABLET PO SCH (05:35)
[2020-11-11 05:42] VITALS: BP 133/49
[2020-11-11] MEDS: FUROSEMIDE 40 MG/4 ML VIAL IVP SCH (08:07)
[2020-11-11] MEDS: CALCIUM CARB/VIT D3 500/200 TABLET PO SCH (08:08)
[2020-11-11] MEDS: LACTOBACILLUS RHAMNOSUS GG 1 CAPSULE. PO SCH ×2 (08:08→20:49)
[2020-11-11] MEDS: SILDENAFIL CITRATE 20 MG TABLET. PO SCH ×3 (08:09→20:49)
[2020-11-11] MEDS ORDERED: amLODIPine BESYLATE 10 MG TABLET PO SCH (09:00)
--- NOTE | 2020-11-11 10:02 | PDOC2 ---
CARDIAC CONSULT DATE OF CONSULT DOS: DATE: 11/11/20 TIME: 09:53 REASON FOR CONSULT Reason for Consult Acute on chronic CHF REFERRING PHYSICIAN Referring Physician Dr. Massey SOURCE Source: Chart review, Patient HPI History of Present Illness This is an 80 yo female who presented secondary to chest pain, shortness of breath, and dizziness. Patient went out of the house yesterday for scheduled echocardiogram through [facility]. Reports she became winded with exertion. Son and daughter in law helped her to the car. Reports having difficulty getting into car. Once she got in, was short of breath and slightly dizzy. Continue to feel short of breath so she came to the ED for further evaluation and treatment. Has also notice some worsening LE edema and reports her arms to be slightly puffy this am. Denies any chest pain, diaphoresis, or nausea/vomiting. UA notable for UTI. Denies any dysuria. Of note, was + for COVID in October requiring hospitalization. PAST MEDICAL HISTORY Cardiovascular: AFIB, CHF, HTN, pulmonary hypertension GI: GERD Heme/Onc: Anemia NOS Musculoskeletal: Osteoarthritis PAST SURGICAL HISTORY Past Surgical History: Total hip replacement (right ), Total knee replacement (left ), Hysterectomy CURRENT MEDICATIONS Current Medications Current Medications Aspirin (Aspirin Chewable) 324 mg 1X ONCE PO Last administered on 11/10/20at 13:46; Start 11/10/20 at 12:30; Stop 11/10/20 at 12:38; Status DC Furosemide (Lasix) 40 mg 1X ONCE IVP Last administered on 11/10/20at 16:38; Start 11/10/20 at 15:30; Stop 11/10/20 at 15:31; Status DC Cefepime HCl 2 gm/ Sodium Chloride 100 ml @ 200 mls/hr Q8HRS IV ; Start 11/10/20 at 22:00; Status Cancel Cefepime HCl 2 gm/ Sodium Chloride 100 ml @ 200 mls/hr Q8HRS IV Last administered on 11/10/20at 16:39; Start 11/10/20 at 16:30; Stop 11/10/20 at 17:59; Status DC Cefepime HCl (Maxipime) 2 gm STK-MED ONCE IV ; Start 11/10/20 at 16:22; Stop 11/10/20 at 16:23; Status DC Sodium Chloride 100 ml @ As Directed STK-MED ONCE .ROUTE ; Start 11/10/20 at 16:23; Stop 11/10/20 at 16:23; Status DC Cefepime HCl 2 gm/ Sodium Chloride 100 ml @ 200 mls/hr Q12H IV Last administered on 11/11/20at 05:34; Start 11/11/20 at 05:00 Amlodipine Besylate (Norvasc) 10 mg DAILY PO Last administered on 11/11/20at 08:08; Start 11/11/20 at 09:00 Dicyclomine HCl (Bentyl) 20 mg PRN DAILY PRN PO IBS; Start 11/10/20 at 18:00 Levothyroxine Sodium (Synthroid) 50 mcg DAILY06 PO Last administered on 11/11/20at 05:35; Start 11/11/20 at 06:00 Sildenafil Citrate (Revatio) 20 mg TID PO Last administered on 11/11/20at 08:09; Start 11/10/20 at 21:00 Tramadol HCl (Ultram) 50 mg PRN Q6HRS PRN PO PAIN Last administered on 11/11/20at 08:09; Start 11/10/20 at 18:00 Calcium/Vitamin D (Oscal D 500mg/ 200uts) 1 tab DAILY PO Last administered on 11/11/20at 08:08; Start 11/11/20 at 09:00 Metoprolol Tartrate (Lopressor) 12.5 mg BID PO Last administered on 11/10/20at 20:36; Start 11/10/20 at 21:00 Furosemide (Lasix) 40 mg DAILY IVP Last administered on 11/11/20at 08:07; Start 11/11/20 at 09:00 Lactobacillus Rhamnosus (Culturelle) 1 cap BID PO Last administered on 11/11/20at 08:08; Start 11/10/20 at 21:00 Active Scripts Active Reported Carvedilol ER (Carvedilol Phosphate) 40 Mg Cpmp.24hr 1 Cap PO DAILY Torsemide 20 Mg Tablet 1 Tab PO DAILY Warfarin Sodium 4 Mg Tablet 1 Tab PO DAILY Calcium 1,000 + D3 Caplet (Calcium Carbonate/Vitamin D3) 1 Each Tablet 1 Each PO DAILY Tramadol Hcl (Tramadol HCl) 50 Mg Tablet 50 Mg PO PRN Q6HRS PRN Amlodipine Besylate 10 Mg Tablet 1 Tab PO DAILY Levothyroxine Sodium 50 Mcg Tablet 50 Mcg PO DAILYAC LAST DOSE GIVEN: DATE: TIME: NEXT DOSE DUE: DATE: TIME: Sildenafil (Sildenafil Citrate) 20 Mg Tablet 20 Mg PO TID LAST DOSE GIVEN: DATE: TIME: NEXT DOSE DUE: DATE: TIME: Dicyclomine Hcl 20 Mg Tablet 20 Mg PO DAILY PRN LAST DOSE GIVEN: DATE: TIME: NEXT DOSE DUE: DATE: TIME: ALLERGIES Allergies: Coded Allergies: nitrofurantoin (Verified Allergy, Intermediate, 11/10/20) Penicillins (Verified Allergy, Mild, 11/10/20) Has tolerated for up to a week before Sulfa (Sulfonamide Antibiotics) (Verified Allergy, Mild, 11/10/20) Has tolerated for up to a week before ROS Review of Systems 14 point ROS conducted with pertinent positives noted above in hPI PHYSICAL EXAM General: Alert, Oriented X3, Cooperative, No acute distress HEENT: Atraumatic, Mucous membr. moist/pink Lungs: Other (diminished bases) Heart: Regular rate (SR/SB) Abdomen: Soft Extremities: Other (1-2+ bilateral LE edema ) Skin: No breakdown Neuro: Normal speech, Sensation intact Psych/Mental Status: Mental status NL, Mood NL MUSCULOSKELETAL: Osteoarthritic changes both hands VITALS Vital Signs Vital Signs Date Time Temp Pulse Resp B/P (MAP) Pulse Ox O2 Delivery O2 Flow Rate FiO2 11/11/20 08:25 Nasal Cannula 2.0 11/11/20 08:09 18 11/11/20 08:09 83 133/49 11/11/20 05:42 98.6 93 LABS LABS Laboratory Tests Test 11/10/20 12:40 11/10/20 13:00 11/10/20 18:30 11/11/20 06:18 White Blood Count 5.9 x10^3/uL (4.0-11.0) Red Blood Count 3.75 x10^6/uL (3.50-5.40) Hemoglobin 10.2 g/dL (12.0-15.5) Hematocrit 31.0 % (36.0-47.0) Mean Corpuscular Volume 83 fL (79-100) Mean Corpuscular Hemoglobin 27 pg (25-35) Mean Corpuscular Hemoglobin Concent 33 g/dL (31-37) Red Cell Distribution Width 15.9 % (11.5-14.5) Platelet Count 390 x10^3/uL (140-400) Neutrophils (%) (Auto) 79 % (31-73) Lymphocytes (%) (Auto) 9 % (24-48) Monocytes (%) (Auto) 9 % (0-9) Eosinophils (%) (Auto) 2 % (0-3) Basophils (%) (Auto) 2 % (0-3) Neutrophils # (Auto) 4.7 x10^3uL (1.8-7.7) Lymphocytes # (Auto) 0.5 x10^3/uL (1.0-4.8) Monocytes # (Auto) 0.5 x10^3/uL (0.0-1.1) Eosinophils # (Auto) 0.1 x10^3/uL (0.0-0.7) Basophils # (Auto) 0.1 x10^3/uL (0.0-0.2) Prothrombin Time 37.5 SEC (9.4-11.4) 32.4 SEC (9.4-11.4) Prothromb Time International Ratio 3.8 (0.9-1.1) 3.3 (0.9-1.1) Activated Partial Thromboplast Time 41 SEC (23-33) D-Dimer (Nemo) 0.42 mg/L (0.00-0.50) Sodium Level 138 mmol/L (136-145) 139 mmol/L (136-145) Potassium Level 4.0 mmol/L (3.5-5.1) 3.6 mmol/L (3.5-5.1) Chloride Level 102 mmol/L (98-107) 103 mmol/L (98-107) Carbon Dioxide Level 31 mmol/L (21-32) 31 mmol/L (21-32) Anion Gap 5 (6-14) 5 (6-14) Blood Urea Nitrogen 29 mg/dL (7-20) 28 mg/dL (7-20) Creatinine 1.5 mg/dL (0.6-1.0) 1.5 mg/dL (0.6-1.0) Estimated GFR (Cockcroft-Gault) 33.2 33.2 BUN/Creatinine Ratio 19 (6-20) Glucose Level 111 mg/dL (70-99) 125 mg/dL (70-99) Calcium Level 8.6 mg/dL (8.5-10.1) 8.4 mg/dL (8.5-10.1) Magnesium Level 2.2 mg/dL (1.8-2.4) Total Bilirubin 0.6 mg/dL (0.2-1.0) Aspartate Amino Transf (AST/SGOT) 15 U/L (15-37) Alanine Aminotransferase (ALT/SGPT) 15 U/L (14-59) Alkaline Phosphatase 57 U/L (46-116) Creatine Kinase 25 U/L (26-192) Creatine Kinase MB (Mass) 0.8 ng/mL (0.0-3.6) Creatine Kinase MB Relative Index 3.2 % (0-4) Troponin I Quantitative < 0.017 ng/mL (0-0.055) < 0.017 ng/mL (0-0.055) DT-Quw-U-Type Natriuretic Peptide 8120 pg/mL (0-449) Total Protein 6.9 g/dL (6.4-8.2) Albumin 2.5 g/dL (3.4-5.0) Albumin/Globulin Ratio 0.6 (1.0-1.7) Urine Collection Type Unknown Urine Color Yellow Urine Clarity Turbid Urine pH 5.5 Urine Specific [place] 1.010 Urine Protein Neg (NEG-TRACE) Urine Glucose (UA) Neg mg/dL (NEG) Urine Ketones (Stick) Neg mg/dL (NEG) Urine Blood Trace (NEG) Urine Nitrite Pos (NEG) Urine Bilirubin Neg (NEG) Urine Urobilinogen Dipstick 0.2 mg/dL (0.2 mg/dL) Urine Leukocyte Esterase Mod (NEG) Urine RBC 3-5 /HPF (0-2) Urine WBC >40 /HPF (0-4) Urine Squamous Epithelial Cells Mod /LPF Urine Bacteria Many /HPF (0-FEW) Urine Hyaline Casts Occ /HPF Urine Mucus Slight /LPF ECHOCARDIOGRAM Echocardiogram 11/10/20 - 2D + DOPPLER ECHO Normal left ventricular systolic function with an ejection fraction of 60 to 65% Mild RV dilatation. Preserved RV systolic function. Mild RV systolic dysfunction. No regional wall motion abnormality. Moderate right atrial dilatation. Mild left atrial dilatation. Mild mitral annular calcification. No MS. Trace to mild MR. Heavily calcified aortic valve. Moderate AI. Mild aortic stenosis. Peak velocity 2.9 m/s mean gradient 20 mmHg, DVI 0.36. No pericardial effusion. Visualized portions of the aortic root and ascending thoracic aorta are within normal limits. Peak PA systolic pressure estimated 54 mmHg. CVP estimated 5 to 10 mmHg. Compared to a prior 2019 study. Continued preservation of LV systolic function with no interval development of any segmental wall motion abnormalities. The right ventricle appears to be at least mildly dilated with some interval development of mild RV systolic dysfunction. There is demonstration of mild aortic stenosis. Peak velocities have minimally increased in 2.5 to 2.8 m/s with an interval increase in the mean gradient from 15 to 20 mmHg. There is again demonstration of moderate aortic insufficiency. There is no other significant valvular disease observed. Peak PA systolic pressure is estimated 54 mmHg slightly decreased in the prior 61 mmHg. ASSESSMENT/PLAN Assessment/Plan 1. Acute respiratory failure secondary with acute on chronic diastolic CHF. Echo 11/10/20 with preserved LV systolic function as noted above 2. Permanent atrial fibrillation: rate well controlled without therapy. on warfarin for stroke prophylaxis. INR 3.3. Follows with Dr. Aylin WEINSTEIN 3. HTN: controlled 4. CKD Pulmonary HTN; follows with Dr. Graves at [facility] 5. UTI 6. COVID + 10/25 Recommendations Mild diuresis with monitoring or renal function Continue warfarin for stroke prophylaxis Treatment of UTI as per IM Consider outpatient ischemic evaluation; will defer to primary library media technician Supportive care ARMANDO HANSON APRN Nov 11, 2020 10:02
[2020-11-11 11:11] VITALS: BP 110/66
[2020-11-11] MEDS ORDERED: ANTI-COAG MONITOR BY PHARMACY. MC PRN (11:45)
--- NOTE | 2020-11-11 12:49 | PN ---
DATE: 11/11/2020 ATTENDING PHYSICIANS: Dr. Massey and Dr. Goldman. SUBJECTIVE: She is breathing better. Still dyspneic with exertion. Her main complaint is some discomfort in the right knee. She had degenerative arthritis. She is not actively bleeding, but the Coumadin is on hold. She still has bruising. INR is still 3.3 today. OBJECTIVE FINDINGS: VITAL SIGNS: Blood pressure today is 110/66, pulse 66 and regular, oxygen saturation 93% on room air and her temperature is 98.3 degrees Fahrenheit. HEENT: Head is without trauma. Pupils are reactive. Sclerae nonicteric. Oropharynx is clear. NECK: Supple, no bruits identified. LUNGS: Minimal crackles. CARDIOVASCULAR: Showed regular heart tones. No gallops. ABDOMEN: Soft. EXTREMITIES: Showed degenerative arthritis. She still has 2+ pitting edema up to her thighs. NEUROLOGIC: Focally intact. SKIN: Warm and dry. LABORATORY DATA: INR today is 3.3, had been 3.8 on admission. ASSESSMENT: 1. An 80-year-old female with acute on chronic diastolic congestive heart failure. 2. Coagulopathy. 3. Paroxysmal atrial fibrillation. 4. Degenerative arthritis. 5. Recent COVID exposure 4 weeks ago. 6. Chronic kidney disease. 7. Essential hypertension. 8. Permanent atrial fibrillation, rate controlled. PLAN: 1. Continue diuresis. 2. Coumadin has been on hold. 3. Serial chemistries and INRs. 4. I will get her brace for her right knee. 5. Wean down supplemental oxygen. I explained to her that we would like for her to be on room air, not to be tethered to oxygen. KRISTINA GOLDMAN MD DR: ROBERT/anitha JOB#: [id number] / [id number]
[2020-11-11 15:04] VITALS: BP 138/75
[2020-11-11 19:27] VITALS: BP 101/55
[2020-11-11 23:38] VITALS: BP 116/57
[2020-11-12] MEDS: CEFEPIME HCL 2 GM in IV NORMAL SALINE 100ML 100 ML IV SCH ×2 (05:04→16:41)
[2020-11-12] MEDS: LEVOTHYROXINE 50 MCG TABLET PO SCH (05:05)
[2020-11-12 05:41] VITALS: BP 105/54
[2020-11-12] MEDS: CALCIUM CARB/VIT D3 500/200 TABLET PO SCH (07:55)
[2020-11-12] MEDS: LACTOBACILLUS RHAMNOSUS GG 1 CAPSULE. PO SCH ×2 (07:56→20:32)
[2020-11-12] MEDS: FUROSEMIDE 40 MG/4 ML VIAL IVP SCH (07:56)
--- NOTE | 2020-11-12 08:42 | PDOC ---
CARDIO Progress Notes Date & Time Date of Service DATE: 11/12/20 TIME: 08:33 Time of Evaluation 08:33 Subjective Notes Dizzy this morning after ambulation Vitals Vitals Vital Signs Date Time Temp Pulse Resp B/P (MAP) Pulse Ox O2 Delivery O2 Flow Rate FiO2 11/12/20 05:41 98.7 72 18 105/54 (71) 91 Nasal Cannula 1.0 Weight Weight [ ] Input and Output I.O. Intake and Output 11/12/20 07:00 Intake Total 1230 ml Balance 1230 ml Intake Oral 1130 ml IV Total 100 ml # Voids 2 Laboratory Labs Laboratory Tests Test 11/10/20 12:40 11/10/20 13:00 11/10/20 18:30 11/11/20 06:18 White Blood Count 5.9 x10^3/uL (4.0-11.0) Red Blood Count 3.75 x10^6/uL (3.50-5.40) Hemoglobin 10.2 g/dL (12.0-15.5) Hematocrit 31.0 % (36.0-47.0) Mean Corpuscular Volume 83 fL (79-100) Mean Corpuscular Hemoglobin 27 pg (25-35) Mean Corpuscular Hemoglobin Concent 33 g/dL (31-37) Red Cell Distribution Width 15.9 % (11.5-14.5) Platelet Count 390 x10^3/uL (140-400) Neutrophils (%) (Auto) 79 % (31-73) Lymphocytes (%) (Auto) 9 % (24-48) Monocytes (%) (Auto) 9 % (0-9) Eosinophils (%) (Auto) 2 % (0-3) Basophils (%) (Auto) 2 % (0-3) Neutrophils # (Auto) 4.7 x10^3uL (1.8-7.7) Lymphocytes # (Auto) 0.5 x10^3/uL (1.0-4.8) Monocytes # (Auto) 0.5 x10^3/uL (0.0-1.1) Eosinophils # (Auto) 0.1 x10^3/uL (0.0-0.7) Basophils # (Auto) 0.1 x10^3/uL (0.0-0.2) Prothrombin Time 37.5 SEC (9.4-11.4) 32.4 SEC (9.4-11.4) Prothromb Time International Ratio 3.8 (0.9-1.1) 3.3 (0.9-1.1) Activated Partial Thromboplast Time 41 SEC (23-33) D-Dimer (Nemo) 0.42 mg/L (0.00-0.50) Sodium Level 138 mmol/L (136-145) 139 mmol/L (136-145) Potassium Level 4.0 mmol/L (3.5-5.1) 3.6 mmol/L (3.5-5.1) Chloride Level 102 mmol/L (98-107) 103 mmol/L (98-107) Carbon Dioxide Level 31 mmol/L (21-32) 31 mmol/L (21-32) Anion Gap 5 (6-14) 5 (6-14) Blood Urea Nitrogen 29 mg/dL (7-20) 28 mg/dL (7-20) Creatinine 1.5 mg/dL (0.6-1.0) 1.5 mg/dL (0.6-1.0) Estimated GFR (Cockcroft-Gault) 33.2 33.2 BUN/Creatinine Ratio 19 (6-20) Glucose Level 111 mg/dL (70-99) 125 mg/dL (70-99) Calcium Level 8.6 mg/dL (8.5-10.1) 8.4 mg/dL (8.5-10.1) Magnesium Level 2.2 mg/dL (1.8-2.4) Total Bilirubin 0.6 mg/dL (0.2-1.0) Aspartate Amino Transf (AST/SGOT) 15 U/L (15-37) Alanine Aminotransferase (ALT/SGPT) 15 U/L (14-59) Alkaline Phosphatase 57 U/L (46-116) Creatine Kinase 25 U/L (26-192) Creatine Kinase MB (Mass) 0.8 ng/mL (0.0-3.6) Creatine Kinase MB Relative Index 3.2 % (0-4) Troponin I Quantitative < 0.017 ng/mL (0-0.055) < 0.017 ng/mL (0-0.055) EP-Edy-X-Type Natriuretic Peptide 8120 pg/mL (0-449) Total Protein 6.9 g/dL (6.4-8.2) Albumin 2.5 g/dL (3.4-5.0) Albumin/Globulin Ratio 0.6 (1.0-1.7) Urine Collection Type Unknown Urine Color Yellow Urine Clarity Turbid Urine pH 5.5 Urine Specific [place] 1.010 Urine Protein Neg (NEG-TRACE) Urine Glucose (UA) Neg mg/dL (NEG) Urine Ketones (Stick) Neg mg/dL (NEG) Urine Blood Trace (NEG) Urine Nitrite Pos (NEG) Urine Bilirubin Neg (NEG) Urine Urobilinogen Dipstick 0.2 mg/dL (0.2 mg/dL) Urine Leukocyte Esterase Mod (NEG) Urine RBC 3-5 /HPF (0-2) Urine WBC >40 /HPF (0-4) Urine Squamous Epithelial Cells Mod /LPF Urine Bacteria Many /HPF (0-FEW) Urine Hyaline Casts Occ /HPF Urine Mucus Slight /LPF Microbiology Micro Microbiology 11/10/20 Urine Culture - Final, Complete 11/10/20 Antimicrobic Susceptibility - Final, Complete Physical Exams HEENT: Neck Supple W Full Motion Chest: Symmetric Lungs: Other (diminished bases) Heart: RRR Abdomen: Soft N/T Extremities: Other (1+ bilateral LE edema ) Neurology: alert, oriented, follow commands Assessment Assessment 1. Acute respiratory failure secondary with acute on chronic diastolic CHF. Echo 11/10/20 with preserved LV systolic function as noted above 2. Permanent atrial fibrillation; rate controlled. on warfarin for stroke prophylaxis. INR 3.3. Follows with Dr. Aylin WEINSTEIN 3. HTN: low end 4. CKD 5. Pulmonary HTN; follows with Dr. Graves at [facility] 6. UTI 7. COVID + 10/25 8. Bradycardia; lowest mid 30's overnight. No pauses. BB discontinued. Presently AFIB with rate 70 Recommendations Repeat BMP, Mg Hold antiHTN therapy as warranted alex hypotension S/p IV Lasix. will hold additional for now Orthostatic VS Continue warfarin for stroke prophylaxis; presently on hold with elevated INR Not on BB due ot bradycardia. Treatment of UTI as per IM Consider outpatient ischemic evaluation; will defer to primary nail setter Supportive care ARMANDO HANSON APRN Nov 12, 2020 08:42
[2020-11-12 08:58] LABS: CALCIUM 8.4 mg/dL (8.5-10.1); CREATININE 1.4 mg/dL (0.6-1.0); POTASSIUM 3.8 mmol/L (3.5-5.1)
--- NOTE | 2020-11-12 09:22 | PN ---
DATE: 11/12/2020 ATTENDING PHYSICIAN: Dr. Luna Massey SUBJECTIVE: She was very dizzy this morning when she got up, blood pressure was marginal. She became orthostatic. OBJECTIVE FINDINGS: VITAL SIGNS: Blood pressure this morning was 105/54, temperature 98.7 degrees Fahrenheit, oxygen saturation 91% on 1 liter nasal cannula. HEENT: Head is without trauma. Pupils are reactive. Sclerae nonicteric. Oropharynx clear. NECK: Supple, no bruits. LUNGS: Good breath sounds. Diminished breath sounds at bases. CARDIOVASCULAR: Showed distant heart tones. No gallops. ABDOMEN: Soft. EXTREMITIES: Show 2+ pitting edema. NEUROLOGIC: Focally intact. Speech is fluent. Director Clinical Applications intact. SKIN: Warm and dry. LABORATORY STUDIES: Repeat INR is pending this morning. Last creatinine was 1.5 mg/dL. I did review her meds. She is on amlodipine, Lasix, and Viagra for pulmonary hypertension. Her last echocardiogram obtained from showed pulmonary artery pressure is approximately 50 mmHg, preserved ejection fraction. ASSESSMENT: 1. An 80-year-old female with acute on chronic diastolic congestive heart failure, compensated. 2. Coagulopathy, being treated. 3. Paroxysmal atrial fibrillation. 4. Degenerative arthritis. 5. Recent COVID exposure 4 weeks ago. 6. Chronic kidney disease. 7. Essential hypertension. 8. Rate controlled atrial fibrillation. PLAN: 1. Continue diuresis as ordered. 2. Coumadin has been held, pending INR today. 3. We will hold her amlodipine. 4. Weaning down supplemental oxygen. 5. We will hold sildenafil until her systolic blood pressure improves. KRISTINA GOLDMAN MD DR: ROBERT/anitha JOB#: [id number] / [id number]
--- NOTE | 2020-11-12 10:24 | NUR ---
NURSES NOTE-EPISODE OF DIZZINESS [place] [facility] [place] [facility] [place] 103/61, SAO2 ON 1L IS 88%. BP MEDS HELD/DC'D (SEE ORDERS) AND O2 INCREASED TO 2L/NC.
[2020-11-12 10:48] VITALS: BP 109/67
[2020-11-12 15:18] VITALS: BP 104/67
[2020-11-12 19:31] VITALS: BP 104/66
[2020-11-12 23:28] VITALS: BP 130/71
[2020-11-13] MEDS: CEFEPIME HCL 2 GM in IV NORMAL SALINE 100ML 100 ML IV SCH (04:50)
[2020-11-13] MEDS: LEVOTHYROXINE 50 MCG TABLET PO SCH (04:50)
[2020-11-13 05:20] VITALS: BP 123/76
[2020-11-13] MEDS: LACTOBACILLUS RHAMNOSUS GG 1 CAPSULE. PO SCH (08:08)
[2020-11-13] MEDS: CALCIUM CARB/VIT D3 500/200 TABLET PO SCH (08:08)
[2020-11-13 11:00] VITALS: BP 109/62
--- NOTE | 2020-11-13 14:00 | DS ---
DATE OF DISCHARGE: 11/13/2020 ATTENDING PHYSICIANS: Dr. Massey and Dr. Goldman. FINAL DISCHARGE DIAGNOSES: 1. Acute on chronic diastolic congestive heart failure, exacerbation, compensated. 2. Coagulopathy due to Coumadin. 3. Chronic anticoagulation. 4. Paroxysmal atrial fibrillation. 5. Degenerative arthritis. 6. Recent COVID exposure 4 weeks ago. 7. Chronic kidney disease stage 2. 8. Essential hypertension. 9. Generalized debilitation. 10. Degenerative arthritis. HISTORY AND PHYSICAL: This 80-year-old female with cardiac and pulmonary issues is admitted for dyspnea and exacerbation of diastolic heart failure. She also has pulmonary hypertension. She was recently at the outpatient ultrasound for echocardiogram. PHYSICAL EXAMINATION: Please see the dictated note. PERTINENT LABORATORY AND X-RAY STUDIES: On this admission, her hemoglobin was 10.2 g/dL with a white count of 5900. Electrolytes: Sodium 139 mEq/L, potassium replaced up to 3.8 mEq, creatinine improved from 1.5 to 1.4 mg/dL, BUN was 27 mg/dL, total bilirubin was 2.0. Cardiac enzymes negative for coronary ischemia. BNP is elevated at 8120. Chest x-ray on admission showed interval decrease in right lung infiltrate, small pleural effusions identified. COURSE IN THE HOSPITAL: The patient was admitted with worsening congestive heart failure due to diastolic dysfunction. We did have our Cardiology evaluation. A industrial rehabilitation consultant evaluated her and their recommendation is on the chart. We did give her more diuretics on the first day. On the second day, her blood pressure was a bit soft. She got a little dizzy sitting up to go to the bathroom. We held her diuretics, and we cut back on her sildenafil. She had a slight elevation of INR due to her Coumadin. This was held for 3 days and restarted at a lower dose of 2 mg. It had been to 3.4 down to 3.2 and subsequently down to 1.8 INR. By the fourth hospital day, she required a small amount of oxygen 1 liter by nasal cannula with a marked improvement. Clinically, she was doing better. She still remained quite weak. Blood pressure was improved with the adjustment in medication. I strongly suggested subacute rehabilitation at a local nursing facility. She declined. She wants to go home. She had several children in the area that are able to look in after her. Supplemental oxygen was ordered and will be delivered to her house. On the fourth hospital day, the patient was then discharged home with some slight changes in her medications. They include the following: She will continue her sildenafil, but twice a day instead of 3 times a day. She will continue her Coreg 40 mg SR 1 daily, calcium daily, Bentyl 20 mg as needed, Synthroid 50 mcg daily, sildenafil decreased to 20 mg b.i.d., torsemide 20 mg daily, and Ultram 50 mg every 6 hours p.r.n. pain. Because of diminished blood pressure, we took the liberty of holding her amlodipine. In addition, I would recommend a lower dose of Coumadin at 2 mg p.o. daily. I suggested a followup visit with her PCP in 7-10 days and recheck INR, CBC, and chemistry panel at that time. The patient was then discharged from our hospital in stable condition with explicit instructions and followup care. She will have supplemental oxygen delivered to the house. Total discharge time spent 48 minutes. KRISTINA GOLDMAN MD DR: ROBERT/anitha JOB#: [id number] / [id number] DEVANG Ramos MD
--- NOTE | 2020-11-13 14:14 | NUR ---
PATIENT IS DISCHARGED HOME, DISCHARGED INSTRUCTIONS REVIEWED, PATIENT VERBALIZED UNDERSTANDING. PATIENT LEFT CHANTELEL 109 VIA W/C ACCOMP BY STAFF MEMBER. PATIENT IS TAKEN HOME BY FAMILY MEMBER VIA PERSONAL VEHICLE.
[2020-11-14] MEDS ORDERED: WARFARIN 2 MG TABLET. PO SCH (09:00)
== END 2020-11-13 14:10 | disposition home health service (06) | DRG 291 ==
LOC: ER 11:38 → 1 SOUTH 15:20
PROVIDERS: ADMIT Internal Medicine; ATTEND Internal Medicine
DX: I13.0 Hypertensive heart and chronic kidney disease with heart failure and stage 1 through stage 4 chronic kidney disease, or unspecified chronic kidney disease (principal); I50.33 Acute on chronic diastolic (congestive) heart failure; J96.01 Acute respiratory failure with hypoxia; D68.9 Coagulation defect, unspecified; N30.00 Acute cystitis without hematuria; I48.21 Permanent atrial fibrillation; E78.5 Hyperlipidemia, unspecified; I25.10 Atherosclerotic heart disease of native coronary artery without angina pectoris; I25.2 Old myocardial infarction; I27.20 Pulmonary hypertension, unspecified; M19.90 Unspecified osteoarthritis, unspecified site; N18.2 Chronic kidney disease, stage 2 (mild); T45.515A Adverse effect of anticoagulants, initial encounter; Z79.01 Long term (current) use of anticoagulants; Z79.890 Hormone replacement therapy; Z79.899 Other long term (current) drug therapy; Z82.49 Family history of ischemic heart disease and other diseases of the circulatory system; Z86.73 Personal history of transient ischemic attack (TIA), and cerebral infarction without residual deficits; Z90.710 Acquired absence of both cervix and uterus; Z96.641 Presence of right artificial hip joint; Z96.652 Presence of left artificial knee joint; Z98.1 Arthrodesis status; K21.9 Gastro-esophageal reflux disease without esophagitis; Z88.0 Allergy status to penicillin; Z88.2 Allergy status to sulfonamides; Z88.8 Allergy status to other drugs, medicaments and biological substances; Z86.16 Personal history of COVID-19
CPT/HCPCS: 36415; 71045; 80048; 80053; 81001; 82553; 83735; 83880; 84484; 85025; 85379; 85610; 85730; 87077; 87086; 87186; 93005; 96365; 96375; J0692; J1940; 99285-25